=== PATIENT | female | born 1980 | race Caucasian/White ===

== ENCOUNTER → 2017-02-20 | Outpatient (CLI) | payer SELFPAY ==
[2017-02-20 19:13] LABS: BASOPHILS # (AUTO) 0.1 10^3/uL (0.0-0.1); EOSINOPHILS # (AUTO) 0.3 10^3/uL (0.0-0.7); EOSINOPHILS % (AUTO) 2.2 %; HCT - HEMATOCRIT 38.9 % (37.0-47.0); HGB - HEMOGLOBIN 12.6 g/dL (12.0-16.0); LYMPHOCYTES # (AUTO) 2.9 10^3/uL (1.5-3.5); LYMPHOCYTES % (AUTO) 24.3 %; MEAN CORPUSCULAR HEMOGLOBIN 26.2 pg (27.0-31.0); MEAN CORPUSCULAR HGB CONC 32.3 g/dL (32.0-36.0); MEAN CORPUSCULAR VOLUME 80.9 fL (81.0-99.0); MEAN PLATELET VOLUME 9.2 fL (7.9-10.8); MONOCYTES # (AUTO) 0.9 10^3/uL (0.0-1.0); MONOCYTES % (AUTO) 7.5 %; NEUTROPHILS # (AUTO) 7.8 10^3/uL (1.5-6.6); NUCLEATED RED BLOOD CELLS AUTO 0.1 /100WBC; RED BLOOD COUNT 4.81 10^6/uL (4.20-5.40); RED CELL DISTRIBUTION WIDTH 13.8 % (12.0-15.0); UNCORRECTED WHITE BLOOD COUNT 11.9 x10^3/uL; WHITE BLOOD COUNT 11.9 x10^3/uL (4.8-10.8)
[2017-02-20 19:18] LABS: ALBUMIN/GLOBULIN RATIO 1.2 (1.0-2.2); BILIRUBIN,TOTAL 0.2 mg/dL (0.2-1.0); BUN - BLOOD UREA NITROGEN 13 mg/dL (6-20); CALCIUM 8.7 mg/dL (8.5-10.3); CARBON DIOXIDE - CO2 23 mmol/L (21-32); CHLORIDE 105 mmol/L (101-111); CREATININE 0.9 mg/dL (0.4-1.0); GFR - MDRD 70 (>89); GLUCOSE 111 mg/dL (70-100); SODIUM 135 mmol/L (135-145); TOTAL PROTEIN 7.9 g/dL (6.7-8.2)
[2017-02-20 19:25] LABS: THYROID STIMULATING HORMONE 17.14 uIU/mL (0.34-5.60)
== END ==
LOC: LAB.WCP 13:54
PROVIDERS: ATTEND Physician Assistant Medical
DX: R79.9 Abnormal finding of blood chemistry, unspecified (principal); E03.9 Hypothyroidism, unspecified; Z51.81 Encounter for therapeutic drug level monitoring; Z79.899 Other long term (current) drug therapy
CPT/HCPCS: 36415; 80053; 84439; 84443; 85025

== ENCOUNTER 2017-05-13 12:45 | Outpatient (CLI) | payer SELFPAY ==
[2017-05-13 17:35] LABS: BASOPHILS # (AUTO) 0.1 10^3/uL (0.0-0.1); BASOPHILS % (AUTO) 0.7 %; EOSINOPHILS # (AUTO) 0.2 10^3/uL (0.0-0.7); EOSINOPHILS % (AUTO) 2.8 %; HGB - HEMOGLOBIN 12.6 g/dL (12.0-16.0); LYMPHOCYTES % (AUTO) 34.7 %; MEAN CORPUSCULAR HEMOGLOBIN 25.5 pg (27.0-31.0); MEAN CORPUSCULAR HGB CONC 32.3 g/dL (32.0-36.0); MEAN CORPUSCULAR VOLUME 78.9 fL (81.0-99.0); MEAN PLATELET VOLUME 8.8 fL (7.9-10.8); MONOCYTES # (AUTO) 0.6 10^3/uL (0.0-1.0); MONOCYTES % (AUTO) 6.6 %; NEUTROPHILS # (AUTO) 4.8 10^3/uL (1.5-6.6); NEUTROPHILS % (AUTO) 55.2 %; PLT - PLATELET COUNT 355 10^3/uL (130-450); RED BLOOD COUNT 4.93 10^6/uL (4.20-5.40); RED CELL DISTRIBUTION WIDTH 13.3 % (12.0-15.0); WHITE BLOOD COUNT 8.8 x10^3/uL (4.8-10.8)
[2017-05-13 17:57] LABS: ALBUMIN 4.3 g/dL (3.2-5.5); ALBUMIN/GLOBULIN RATIO 1.1 (1.0-2.2); ALKALINE PHOSPHATASE 81 IU/L (42-121); ALT ALANINE AMINOTRANSFERASE 42 IU/L (10-60); AST ASPARTATE AMINOTRANSFERASE 32 IU/L (10-42); BILIRUBIN,TOTAL 0.4 mg/dL (0.2-1.0); BUN - BLOOD UREA NITROGEN 11 mg/dL (6-20); CALCIUM 9.2 mg/dL (8.5-10.3); CARBON DIOXIDE - CO2 26 mmol/L (21-32); CHLORIDE 99 mmol/L (101-111); CREATININE 0.8 mg/dL (0.4-1.0); GFR - MDRD 80 (>89); GLUCOSE 94 mg/dL (70-100); SODIUM 136 mmol/L (135-145); TOTAL PROTEIN 8.1 g/dL (6.7-8.2)
== END 2017-05-13 12:46 | disposition home or self-care (01) ==
LOC: LAB.F 12:45
PROVIDERS: ATTEND Physician Assistant Medical
DX: R79.9 Abnormal finding of blood chemistry, unspecified (principal); E03.9 Hypothyroidism, unspecified
CPT/HCPCS: 36415; 80053; 84443; 85025

== ENCOUNTER 2017-10-27 08:59 | Outpatient (CLI) | payer MEDICAID ==
[2017-10-27 12:52] LABS: BASOPHILS # (AUTO) 0.1 10^3/uL (0.0-0.1); EOSINOPHILS # (AUTO) 0.3 10^3/uL (0.0-0.7); EOSINOPHILS % (AUTO) 3.6 %; HGB - HEMOGLOBIN 13.3 g/dL (12.0-16.0); LYMPHOCYTES # (AUTO) 2.4 10^3/uL (1.5-3.5); LYMPHOCYTES % (AUTO) 27.7 %; MEAN CORPUSCULAR HEMOGLOBIN 25.7 pg (27.0-31.0); MEAN CORPUSCULAR HGB CONC 32.1 g/dL (32.0-36.0); MEAN PLATELET VOLUME 8.8 fL (7.9-10.8); MONOCYTES # (AUTO) 0.6 10^3/uL (0.0-1.0); MONOCYTES % (AUTO) 6.8 %; NEUTROPHILS # (AUTO) 5.2 10^3/uL (1.5-6.6); NEUTROPHILS % (AUTO) 60.9 %; PLT - PLATELET COUNT 342 10^3/uL (130-450); RED BLOOD COUNT 5.19 10^6/uL (4.20-5.40); RED CELL DISTRIBUTION WIDTH 13.9 % (12.0-15.0); WHITE BLOOD COUNT 8.6 x10^3/uL (4.8-10.8)
[2017-10-27 13:21] LABS: ALBUMIN 3.6 g/dL (3.2-5.5); ALBUMIN/GLOBULIN RATIO 0.9 (1.0-2.2); ALKALINE PHOSPHATASE 71 IU/L (42-121); ALT ALANINE AMINOTRANSFERASE 23 IU/L (10-60); AST ASPARTATE AMINOTRANSFERASE 27 IU/L (10-42); BILIRUBIN,TOTAL 0.5 mg/dL (0.2-1.0); BUN - BLOOD UREA NITROGEN 7 mg/dL (6-20); CALCIUM 8.9 mg/dL (8.5-10.3); CARBON DIOXIDE - CO2 26 mmol/L (21-32); CHLORIDE 102 mmol/L (101-111); CHOL/HDL RATIO 5.4 (<4.4); CHOLESTEROL 223 mg/dL; CREATININE 0.8 mg/dL (0.4-1.0); GFR - MDRD 80 (>89); GLUCOSE 100 mg/dL (70-100); HDL CHOLESTEROL 41 mg/dL; LDL CHOLESTEROL,CALCULATED 160 mg/dL; LDL/HDL RATIO 3.9 (<4.4); SODIUM 134 mmol/L (135-145); TOTAL PROTEIN 7.5 g/dL (6.7-8.2); VLDL CHOLESTEROL 22 mg/dL
== END 2017-10-27 09:00 | disposition home or self-care (01) ==
LOC: LAB.WCP 08:59
PROVIDERS: ATTEND Physician Assistant Medical
DX: Z00.00 Encounter for general adult medical examination without abnormal findings (principal)
CPT/HCPCS: 36415; 80053; 80061; 83721; 84443; 85025

== ENCOUNTER 2019-01-29 22:03 | Emergency (ER) | payer OTHER, MEDICAID ==
[2019-01-29] MEDS ORDERED: ONDANSETRON ODT 4 MG TABLET TL STA ×2 (22:29→23:18)
--- NOTE | 2019-01-29 22:29 | ED Physician Documentation ---
History of Present Illness - Stated complaint Stated Complaint: HAND PX/GLF - Chief complaint Chief Complaint: Trauma Ext - Additonal information Additional information: This is a 46-year-old female who presents with right hand pain. She was at work and she almost tripped so she was reaching out to catch her balance and "pin wheeling" her arms when she hit her right hand on a metal baking shelf. She had immediate pain in the area and swelling. She went back to work for 20 minutes but afterwards the pain became so great that she went home. When her saw the amount of swelling from the area that she had, he told her to come in to get checked out. She states that the pain is so bad right now that she feels slightly nauseated. She denies injuries elsewhere. She did have a little bit of bleeding from the dorsal aspect of the hand where she has an abrasion suffered in the injury. Review of Systems Skin: reports: Abrasion (s) Musculoskeletal: reports: Extremity pain PD PAST MEDICAL HISTORY - Past Medical History Cardiovascular: None Respiratory: Other Endocrine/Autoimmune: HyPOthyroidism GI: Hiatal hernia FACE BURLER: None : Kidney stones HEENT: None Psych: Depression, Anxiety, Post traumatic stress disorder, Other Musculoskeletal: Chronic back pain Derm: None - Past Surgical History Past Surgical History: Yes General: Cholecystectomy, EGD Ortho: Other /FACE BURLER: Tubal ligation - Present Medications Home Medications: Ambulatory Orders Medication Instructions Recorded Confirmed Citalopram [CeleXA] 40 mg PO DAILY 03/24/14 08/26/15 Levothyroxine [Synthroid] 150 mcg PO DAILY 03/24/14 08/26/15 Diphenoxylate/Atropine [Lomotil] 1 each PO QID PRN #15 tablet 08/27/15 Famotidine 20 mg PO BID #15 tablet 08/27/15 Hydrocodone/Acetaminophen [[place] 1 each PO Q6H PRN #15 tablet 08/27/15 5-325 Tablet] Ondansetron HCl [Zofran] 4 mg PO Q6H PRN #20 tablet 08/27/15 - Allergies Allergies/Adverse Reactions: Allergies Allergy/AdvReac Type Severity Reaction Status Date / Time diclofenac AdvReac Severe Nausea Verified 08/26/15 22:28 erythromycin base AdvReac Severe Nausea Verified 08/26/15 22:28 - Social History Does the pt smoke?: Yes Smoking Status: Current every day smoker Does the pt drink ETOH?: No Does the pt have substance abuse?: No - Immunizations Immunizations are current?: Yes - POLST Patient has POLST: No PD ED PE NORMAL - Vitals Vital signs reviewed: Yes - General General: Alert and oriented X 3, No acute distress - Cardiac Cardiac: Strong equal pulses - Respiratory Respiratory: No respiratory distress - Extremities Extremities: Other (Swelling in the dorsal and ulnar aspect of her right hand, there is a small less than 0.5 cm abrasion with no active bleeding. Patient is tender in the area of the edema as well as the distal 4th finger, The remainder of her fingers, as well as the wrist and forearm are nontender to palpation. Sensation is intact to light touch over this to be in the median radial and ulnar nerves. Capillary refill is brisk.) - Neuro Neuro: Alert and oriented X 3 - Psych Psych: Normal mood, Normal affect Results - Vitals Vitals: Vital Signs - 24 hr 01/29/19 01/29/19 22:12 23:25 Temperature 36.6 C Heart Rate 78 73 Respiratory 22 22 Rate Blood Pressure 153/86 H 152/131 H O2 Saturation 100 100 Oxygen O2 Source Room air - Rads (name of study) XR Radiology: Other (Fracture of the distal 4th phalanx) PD MEDICAL DECISION MAKING - ED course Complexity details: considered differential (Fracture, contusion, sprain) ED course: Patient is in significant pain and is nauseated from the pain on arrival, she is given Zofran as well as oxycodone. She required 1 more dose of antinausea medications subsequently with good results. Patient's hand is neurovascularly intact, she has a fracture of her distal fourth finger, no other fractures seen. This is a closed fracture, The mild abrasion she has is far from the fracture site, and is hemostatic, no specific intervention is needed for it. She is provided with a splint to immobilize the DIP, and I reviewed supportive care such as splinting and kevin taping, and afcu-zwy-kqzseee medications for pain control. I reviewed return precautions and recommend to follow-up with her primary care provider. Patient agreed and was discharged home. Departure - Departure Disposition: 01 Home, Self Care Clinical Impression: Finger fracture, right Condition: Good Instructions: ED Fx Finger Closed Follow-Up: Margareth Aguiar PA-C [Primary Care Provider] - (For follow up on finger fracture and hand pain) Comments: You were seen today for pain in your right hand, you have a fracture of the tip of your fourth finger. We do not see signs or fracture lower down in your hand, but if you are having continued and not improving pain in your hand, please follow-up with your primary care provider and have a reevaluation/repeat x-ray in 1 week. Sometimes small fractures are difficult to see on x-rays immediately after the injury. You may take Tylenol and ibuprofen for pain, ice the hand, keep it elevated. If you have worsening symptoms please return to the emergency permit Forms: Activity restrictions Discharge Date/Time: 01/29/19 23:30
[2019-01-29] MEDS ORDERED: oxyCODONE 5 MG TABLET PO STA (22:30)
--- NOTE | 2019-01-29 22:58 | XRAY Report ---
Reason: Fall, hand trauma Procedure Date: 01/29/2019 Accession Number: [id number] / [id number] Procedure: XR - Hand 3 View RT CPT Code: FULL RESULT: EXAM: RIGHT HAND RADIOGRAPHY EXAM DATE: 01/29/2019 10:46 PM. CLINICAL HISTORY: Fall, hand trauma. COMPARISON: None. TECHNIQUE: 3 views. FINDINGS: Bones: There is fracture through the tip of the fourth distal phalanx. Joints: No evidence of dislocation. Soft Tissues: No unexpected soft tissue findings. IMPRESSION: There is fracture through the tip of the fourth distal phalanx. No evidence of dislocation. RADIA
[2019-01-29 23:26] VITALS: BP 152/131
== END 2019-01-29 23:30 | disposition home or self-care (01) ==
LOC: ED 22:03
DX: S62.634A Displaced fracture of distal phalanx of right ring finger, initial encounter for closed fracture (principal); S60.511A Abrasion of right hand, initial encounter; W22.09XA Striking against other stationary object, initial encounter; Y99.0 Civilian activity done for income or pay; R11.0 Nausea; F17.200 Nicotine dependence, unspecified, uncomplicated
CPT/HCPCS: 1040M; 73130; 99282; 99283; A9270; Q0162

== ENCOUNTER 2019-04-27 08:00 | Outpatient (CLI) | payer MEDICAID ==
[2019-04-27 18:41] LABS: BASOPHILS # (AUTO) 0.1 10^3/uL (0.0-0.1); BASOPHILS % (AUTO) 1.1 %; EOSINOPHILS # (AUTO) 0.3 10^3/uL (0.0-0.7); EOSINOPHILS % (AUTO) 3.1 %; HGB - HEMOGLOBIN 14.1 g/dL (12.0-16.0); LYMPHOCYTES # (AUTO) 2.6 10^3/uL (1.5-3.5); LYMPHOCYTES % (AUTO) 31.5 %; MEAN CORPUSCULAR HEMOGLOBIN 26.2 pg (27.0-31.0); MEAN CORPUSCULAR HGB CONC 30.9 g/dL (32.0-36.0); MEAN CORPUSCULAR VOLUME 84.8 fL (81.0-99.0); MEAN PLATELET VOLUME 10.3 fL (7.9-10.8); MONOCYTES # (AUTO) 0.6 10^3/uL (0.0-1.0); MONOCYTES % (AUTO) 7.6 %; NEUTROPHILS # (AUTO) 4.7 10^3/uL (1.5-6.6); NEUTROPHILS % (AUTO) 56.5 %; PLT - PLATELET COUNT 362 10^3/uL (130-450); RED BLOOD COUNT 5.39 10^6/uL (4.20-5.40); RED CELL DISTRIBUTION WIDTH 13.5 % (12.0-15.0); WHITE BLOOD COUNT 8.3 x10^3/uL (4.8-10.8)
[2019-04-27 19:12] LABS: ALBUMIN 4.5 g/dL (3.2-5.5); ALBUMIN/GLOBULIN RATIO 1.1 (1.0-2.2); ALKALINE PHOSPHATASE 66 IU/L (42-121); ALT ALANINE AMINOTRANSFERASE 17 IU/L (10-60); AST ASPARTATE AMINOTRANSFERASE 20 IU/L (10-42); BUN - BLOOD UREA NITROGEN 15 mg/dL (6-20); CALCIUM 9.1 mg/dL (8.5-10.3); CARBON DIOXIDE - CO2 26 mmol/L (21-32); CHLORIDE 101 mmol/L (101-111); GFR - MDRD 61 (>89); GLUCOSE 84 mg/dL (70-100); SODIUM 135 mmol/L (135-145); TOTAL PROTEIN 8.5 g/dL (6.7-8.2); VLDL CHOLESTEROL 24 mg/dL
[2019-04-27 19:13] LABS: CHOL/HDL RATIO 7.1 (<4.4); CHOLESTEROL 250 mg/dL; HDL CHOLESTEROL 35 mg/dL; LDL CHOLESTEROL,CALCULATED 191 mg/dL; LDL/HDL RATIO 5.5 (<4.4)
[2019-04-27 19:59] LABS: FREE T4 (FREE THYROXINE) 0.93 ng/dL (0.58-1.64)
== END 2019-04-27 23:59 | disposition home or self-care (01) ==
LOC: LAB.WCP 08:00
PROVIDERS: ATTEND Physician Assistant Medical
DX: Z00.00 Encounter for general adult medical examination without abnormal findings (principal); Z51.81 Encounter for therapeutic drug level monitoring; Z79.899 Other long term (current) drug therapy; R79.9 Abnormal finding of blood chemistry, unspecified; Z13.220 Encounter for screening for lipoid disorders; F32.9 Major depressive disorder, single episode, unspecified; E03.9 Hypothyroidism, unspecified
CPT/HCPCS: 36415; 80053; 80061; 83721; 84439; 84443; 85025

== ENCOUNTER 2019-08-13 19:27 | Emergency (ER) | payer MEDICAID ==
[2019-08-13] MEDS ORDERED: cefTRIAXone 1 GM VIAL IM STA (19:59)
[2019-08-13] MEDS ORDERED: TETANUS/DIPHTHERIA/PERTUSSIS 0.5 ML SYRINGE IM ONE (19:59)
[2019-08-13] MEDS ORDERED: AMOX/CLAV 875 MG/125 MG TABLET PO STA (19:59)
[2019-08-13] MEDS ORDERED: LIDOCAINE 1% 2 ML VIAL MC ONE (19:59)
[2019-08-13] MEDS ORDERED: oxyCODONE 5 MG TABLET PO STA (19:59)
--- NOTE | 2019-08-13 20:18 | ED Physician Documentation ---
History of Present Illness - Stated complaint Stated Complaint: CAT BITE - LT HAND - Chief complaint Chief Complaint: Trauma Ext - History obtained from History obtained from: Patient - History of Present Illness Timing: Yesterday Pain level max: 8 Pain level now: 6 - Additonal information Additional information: 39-year-old female states she was bitten on her left index finger by cat last night. Started noticing redness and swelling today, is worsened throughout the day. Pain with movement. Unknown last tetanus shot. Better with rest. No fevers. 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 : Kidney stones HEENT: None Psych: Depression, Anxiety, Post traumatic stress disorder, Other Musculoskeletal: Chronic back pain Derm: None - Past Surgical History Past Surgical History: Yes General: Cholecystectomy, EGD Ortho: Other /PERSONAL LINES SALES REP: Tubal ligation - Present Medications Home Medications: Ambulatory Orders Medication Instructions Recorded Confirmed Citalopram [CeleXA] 40 mg PO DAILY 03/24/14 08/13/19 Levothyroxine [Synthroid] 150 mcg PO DAILY 03/24/14 08/13/19 Amox/Clav 875/125 [Augmentin] 1 each PO Q12H #20 tablet 08/13/19 Oxycodone HCl 5 - 10 mg PO Q6H PRN #10 tablet 08/13/19 - Allergies Allergies/Adverse Reactions: Allergies Allergy/AdvReac Type Severity Reaction Status Date / Time diclofenac AdvReac Severe Nausea Verified 08/13/19 19:37 erythromycin base AdvReac Severe Nausea Verified 08/13/19 19:37 - Social History Does the pt smoke?: Yes Smoking Status: Current every day smoker Does the pt drink ETOH?: No Does the pt have substance abuse?: Yes Substance Use and Type: Marijuana - Immunizations Immunizations are current?: Yes - POLST Patient has POLST: No PD ED PE NORMAL - Vitals Vital signs reviewed: Yes - General General: Alert and oriented X 3, No acute distress - HEENT HEENT: Moist mucous membranes - Neck Neck: Supple, no meningeal sign - Cardiac Cardiac: RRR - Respiratory Respiratory: No respiratory distress, Clear bilaterally - Derm Derm: Warm and dry - Extremities Extremities: Other (Erythema and swelling to the left index finger, proximal aspect and MCP joint. Pain with range of motion. No tenderness over the palmar aspect of the hand or finger. No crepitus. No lymphangitis. Neurovascular intact) - Neuro Neuro: Alert and oriented X 3 Results - Vitals Vitals: Vital Signs - 24 hr 08/13/19 08/13/19 19:33 20:28 Temperature 36.4 C L 36.7 C Heart Rate 76 70 Respiratory 16 12 Rate Blood Pressure 102/77 126/91 H O2 Saturation 98 98 Oxygen O2 Source Room air PD MEDICAL DECISION MAKING - ED course Complexity details: considered differential, d/w patient ED course: Patient with a cat bite to the left index finger. Given Rocephin and will start on Augmentin. Given a tetanus shot. Placed in a loose volar splint for comfort. Patient tolerated well. Neurovascular intact. Patient counseled regarding signs and symptoms for which I believe and urgent re-evaluation would be necessary. Patient with good understanding of and agreement to plan and is comfortable going home at this time This document was made in part using voice recognition software. While efforts are made to proofread this document, sound alike and grammatical errors may occur. Departure - Departure Disposition: 01 Home, Self Care Clinical Impression: Cat bite Qualifiers: Encounter type: initial encounter Qualified Code(s): W55.01XA - Bitten by cat, initial encounter Cellulitis Qualifiers: Site of cellulitis: extremity Site of cellulitis of extremity: finger Laterality: left Qualified Code(s): L03.012 - Cellulitis of left finger Condition: Good Instructions: ED Bite Animal General, ED Infec Skin Cellulitis Follow-Up: Margareth Aguiar PA-C [Primary Care Provider] - Within 3 Days Prescriptions: Amox/Clav 875/125 [Augmentin] 1 each PO Q12H #20 tablet Oxycodone HCl 5 - 10 mg PO Q6H PRN #10 tablet PRN Reason: pain Comments: Take all antibiotics until gone. Return if you worsen. Follow-up with your doctor in 3 days for wound check. Return for worsening symptoms including increasing redness, swelling, pain, fever or drainage. Do not drink alcohol or drive while on narcotic pain medicine. Note that many narcotic pain relievers also contain tylenol/acetaminophen. Please ensure that your total dose of acetaminophen from all sources does not exceed 3 grams (3000mg) per day. You may constipated on this medication, take a stool softener such as "Colace" twice a day while you are on it. Also recommend a fadt-ozo-zzyxace laxative such as senna or MiraLAX any day that you do not have a bowel movement. If you received narcotic pain medication in the emergency department, do not drive or operate machinery for the next 24 hours. Remove the splint after 2 to 3 days. It is purely there to help with your pain. Make sure that you are checking under the bandages twice a day. Discharge Date/Time: 08/13/19 20:29
[2019-08-13 20:28] VITALS: BP 126/91
== END 2019-08-13 20:29 | disposition home or self-care (01) ==
LOC: ED 19:27
DX: L03.012 Cellulitis of left finger (principal); F17.200 Nicotine dependence, unspecified, uncomplicated
CPT/HCPCS: 90471; 90715; 96372; 99283; 99284; A9270

== ENCOUNTER 2020-04-12 13:58 | Outpatient (CLI) | payer MEDICAID ==
[2020-04-12 17:59] LABS: BASOPHILS # (AUTO) 0.1 10^3/uL (0.0-0.1); BASOPHILS % (AUTO) 1.7 %; EOSINOPHILS # (AUTO) 0.4 10^3/uL (0.0-0.7); EOSINOPHILS % (AUTO) 4.6 %; HGB - HEMOGLOBIN 13.6 g/dL (12.0-16.0); LYMPHOCYTES # (AUTO) 2.9 10^3/uL (1.5-3.5); LYMPHOCYTES % (AUTO) 36.5 %; MEAN CORPUSCULAR HGB CONC 31.8 g/dL (32.0-36.0); MEAN CORPUSCULAR VOLUME 84.9 fL (81.0-99.0); MEAN PLATELET VOLUME 10.4 fL (7.9-10.8); MONOCYTES # (AUTO) 0.6 10^3/uL (0.0-1.0); MONOCYTES % (AUTO) 7.8 %; NEUTROPHILS # (AUTO) 3.9 10^3/uL (1.5-6.6); PLT - PLATELET COUNT 389 10^3/uL (130-450); RED BLOOD COUNT 5.04 10^6/uL (4.20-5.40); RED CELL DISTRIBUTION WIDTH 13.2 % (12.0-15.0); WHITE BLOOD COUNT 7.9 x10^3/uL (4.8-10.8)
[2020-04-12 18:22] LABS: % IRON SATURATION 17 % (20-50); ALBUMIN 4.5 g/dL (3.2-5.5); ALBUMIN/GLOBULIN RATIO 1.2 (1.0-2.2); ALKALINE PHOSPHATASE 72 IU/L (42-121); ALT ALANINE AMINOTRANSFERASE 13 IU/L (10-60); AST ASPARTATE AMINOTRANSFERASE 15 IU/L (10-42); BILIRUBIN,TOTAL 0.3 mg/dL (0.2-1.0); BUN - BLOOD UREA NITROGEN 15 mg/dL (6-20); CALCIUM 9.4 mg/dL (8.5-10.3); CARBON DIOXIDE - CO2 25 mmol/L (21-32); CHLORIDE 103 mmol/L (101-111); CHOL/HDL RATIO 6.2 (<4.4); CHOLESTEROL 246 mg/dL; CREATININE 0.8 mg/dL (0.4-1.0); GLUCOSE 84 mg/dL (70-100); HDL CHOLESTEROL 40 mg/dL; IRON 62 ug/dL (28-170); LDL CHOLESTEROL,CALCULATED 176 mg/dL; LDL/HDL RATIO 4.4 (<4.4); SODIUM 137 mmol/L (135-145); TOTAL IRON BINDING CAPACITY 365 ug/dL (250-450); TOTAL PROTEIN 8.2 g/dL (6.7-8.2); TRANSFERRIN 261 mg/dL (192-382); VLDL CHOLESTEROL 30 mg/dL
[2020-04-12 18:32] LABS: FERRITIN 31.9 ng/mL (11.0-306.8)
[2020-04-12 18:33] LABS: PROLACTIN 16.81 ng/mL
[2020-04-12 18:57] LABS: FREE T4 (FREE THYROXINE) 0.87 ng/dL (0.58-1.64)
== END 2020-04-12 23:59 | disposition home or self-care (01) ==
LOC: LAB.WCP 13:58
PROVIDERS: ATTEND Physician Assistant Medical
DX: E78.5 Hyperlipidemia, unspecified (principal); N92.0 Excessive and frequent menstruation with regular cycle; E03.9 Hypothyroidism, unspecified
CPT/HCPCS: 36415; 80053; 80061; 82728; 83540; 83721; 84146; 84439; 84443; 84466; 85025

== ENCOUNTER 2020-05-01 14:54 | Outpatient (CLI) | payer MEDICAID ==
--- NOTE | 2020-05-02 09:21 | Ultrasound Report ---
PROCEDURE: Pelvic w/Transvaginal INDICATIONS: MENORRHAGIA TECHNIQUE: Real-time scanning was performed of the pelvic organs, with image documentation. Additional endovagi nal scanning was necessary due to incomplete visualization of the adnexal and endometrial structures by transabdominal scanning. COMPARISON: CT abdomen pelvis 07/24/2015 FINDINGS: Transabdominal scanning: Anteverted and anteflexed uterus is of normal size. No pathologic free abdo reema or pelvic fluid. Endovaginal scanning: Uterus: Uterus is normal in size at 9.2 x 4.7 x 6.0 cm. The myometrium is quite heterogeneous. There is a prominent focus in the posterior lower uterine segment of hyperechogenicity extending from the endometrium to the junctional zone. There are several intramural heterogeneous hypoechoic masses rang ing in size from 9 mm to 1.2 cm. The endometrium measures 13 mm in combined thickness. Ovaries: The right ovary measures 1.8 x 1.1 x 1.7 cm for a volume of 1.7 cc. The left ovary measures 2.8 x 2.0 x 2.7 cm for a volume of 7.7 cc. There is a dominant follicle on the right ovary measuring 1.9 cm. No adnexal masses or free fluid. IMPRESSION: 1. Heterogeneous, fibroid uterus. Uterine heterogeneity also raises the possibility of adenomyosis. C onsider MRI of the pelvis for better evaluation if this is inconsistent with history. 2. Normal ovaries. Reviewed by: Shirley Fleming MD on 05/02/2020 9:20 AM PST Approved by: Shirley Fleming MD on 05/02/2020 9:20 AM PST Station ID: [id number]
== END 2020-05-01 14:55 | disposition home or self-care (01) ==
LOC: DI 14:54
PROVIDERS: ATTEND Physician Assistant Medical
DX: D25.1 Intramural leiomyoma of uterus (principal)

== ENCOUNTER 2020-05-16 08:00 | Outpatient (CLI) | payer MEDICAID ==
[2020-05-16 22:30] LABS: CANDIDA GROUP DNA NEGATIVE (NEGATIVE); CANDIDA KRUSEI DNA NEGATIVE (NEGATIVE); TRICHOMONAS VAGINALIS DNA NEGATIVE (NEGATIVE)
[2020-05-16 23:56] LABS: TRICHOMONAS VAGINALIS DNA NEGATIVE (NEGATIVE)
== END 2020-05-16 23:59 | disposition home or self-care (01) ==
LOC: LAB 08:00
PROVIDERS: ATTEND Obstetrics & Gynecology
DX: Z11.3 Encounter for screening for infections with a predominantly sexual mode of transmission (principal); N76.0 Acute vaginitis
CPT/HCPCS: 87491; 87591; 87661; 87801

== ENCOUNTER 2020-06-19 15:29 | Outpatient (CLI) | payer MEDICAID ==
[2020-06-19 16:06] LABS: BASOPHILS # (AUTO) 0.1 10^3/uL (0.0-0.1); BASOPHILS % (AUTO) 1.2 %; EOSINOPHILS # (AUTO) 0.5 10^3/uL (0.0-0.7); EOSINOPHILS % (AUTO) 4.9 %; HCT - HEMATOCRIT 41.5 % (37.0-47.0); LYMPHOCYTES # (AUTO) 2.7 10^3/uL (1.5-3.5); LYMPHOCYTES % (AUTO) 29.4 %; MEAN CORPUSCULAR HEMOGLOBIN 26.6 pg (27.0-31.0); MEAN CORPUSCULAR HGB CONC 31.3 g/dL (32.0-36.0); MEAN CORPUSCULAR VOLUME 84.9 fL (81.0-99.0); MEAN PLATELET VOLUME 10.4 fL (7.9-10.8); MONOCYTES # (AUTO) 0.9 10^3/uL (0.0-1.0); MONOCYTES % (AUTO) 9.7 %; NEUTROPHILS % (AUTO) 54.4 %; PLT - PLATELET COUNT 324 10^3/uL (130-450); RED BLOOD COUNT 4.89 10^6/uL (4.20-5.40); RED CELL DISTRIBUTION WIDTH 12.9 % (12.0-15.0); WHITE BLOOD COUNT 9.2 x10^3/uL (4.8-10.8)
[2020-06-19 16:24] LABS: ALBUMIN 4.2 g/dL (3.2-5.5); ALBUMIN/GLOBULIN RATIO 1.2 (1.0-2.2); BILIRUBIN,TOTAL 0.4 mg/dL (0.2-1.0); CALCIUM 9.7 mg/dL (8.5-10.3); CREATININE 0.8 mg/dL (0.4-1.0); POTASSIUM 4.3 mmol/L (3.5-5.0); TOTAL PROTEIN 7.7 g/dL (6.7-8.2)
[2020-06-19 16:26] LABS: HCG UR QUAL NEGATIVE
== END 2020-06-19 15:30 | disposition home or self-care (01) ==
LOC: LAB 15:29
PROVIDERS: ATTEND Obstetrics & Gynecology
DX: Z01.812 Encounter for preprocedural laboratory examination (principal); N92.0 Excessive and frequent menstruation with regular cycle; N94.6 Dysmenorrhea, unspecified; Z20.822 Contact with and (suspected) exposure to COVID-19
CPT/HCPCS: 36415; 80053; 81025; 85025; 86850; 86900; 86901

== ENCOUNTER 2020-06-21 07:48 | Observation (INO) | payer MEDICAID ==
[~2020-06-21 07:48] MED LIST: ACETAMINOPHEN 1,000 MG/100 ML 100 ML IV ONE; CELECOXIB 100 MG CAPSULE PO ONE; GABAPENTIN 400 MG CAPSULE ONE; PHENAZOPYRIDINE 100 MG TABLET PO ONE; ceFAZolin 2 GM/50 ML 2 GM/50 ML BAG IV ONE
[2020-06-21] MEDS ORDERED: LACTATED RINGERS 1,000 ML IV ONE ×2 (07:54→13:02)
[2020-06-21 08:07] LABS: HCG UR QUAL NEGATIVE
[2020-06-21] MEDS ORDERED: BUPIVACAINE 0.25% PF 30 ML VIAL ONE (08:30)
[2020-06-21] MEDS ORDERED: LIDOCAINE 2%-EPI 1:100000 20 ML MDV ONE (08:30)
[2020-06-21] MEDS ORDERED: LIDOCAINE-MPF 2% 5 ML VIAL ONE (09:03)
[2020-06-21] MEDS ORDERED: DEXAMETHASONE 4 MG/ML VIAL ONE (09:03)
[2020-06-21] MEDS ORDERED: PROPOFOL 200 MG/20 ML VIAL IVP ONE (09:03)
[2020-06-21] MEDS ORDERED: ROCURONIUM 50 MG/5 ML VIAL ONE ×2 (09:03→11:07)
[2020-06-21] MEDS ORDERED: MIDAZOLAM 2 MG/2 ML VIAL ONE (09:03)
[2020-06-21] MEDS ORDERED: fentaNYL 100 MCG/2 ML VIAL ONE (09:03)
[2020-06-21] MEDS ORDERED: ONDANSETRON 4 MG/2 ML VIAL ONE ×2 (09:03→14:11)
--- NOTE | 2020-06-21 09:21 | ANESTHESIA ---
Pre-Anesthesia VS, & Labs - Diagnosis menorrhagia, dysmenorrhea - Procedure total laparoscopic hysterectomy, cystoscopy Vital Signs: Temp Pulse Resp BP Pulse Ox 36.3 C L 81 16 100/44 L 98 06/21/20 07:59 06/21/20 07:59 06/21/20 07:59 06/21/20 07:59 06/21/20 07:59 Height: 6 ft 1 in Weight (kg): 91 kg Body Mass Index: 26.4 BMI Classification: Overweight - NPO >8 hours - Is Patient ?: No - Lab Results Current Lab Results: Laboratory Tests 06/21/20 08:14: POC Whole Bld Glucose 109 H Home Medications and Allergies Home Medications: Ambulatory Orders Acetaminophen [Tylenol] 650 mg PO Q6H PRN 06/12/20 Ibuprofen [Motrin] 600 mg PO Q6H PRN 06/12/20 Citalopram [CeleXA] 40 mg PO DAILY 03/24/14 Levothyroxine [Synthroid] 225 mcg PO DAILY 03/24/14 Acetaminophen [Tylenol] 650 mg PO Q6H PRN 06/12/20 Ibuprofen [Motrin] 600 mg PO Q6H PRN 06/12/20 Allergies/Adverse Reactions: Allergies Allergy/AdvReac Type Severity Reaction Status Date / Time bupropion [From Wellbutrin] Allergy facial Verified 06/21/20 08:38 numbess, neurological problems diclofenac AdvReac Severe Nausea Verified 06/21/20 08:38 erythromycin base AdvReac Severe Nausea Verified 06/21/20 08:38 Anes History & Medical History - Anesthetic History Anesthesia Complications: reports: Post-Operative Nausea/Vomiting - Medical History Cardiovascular: reports: None Pulmonary: reports: None Gastrointestinal: reports: None Urinary: reports: Kidney stones Neuro: reports: None Musculoskeletal: reports: Chronic back pain, Other Endocrine/Autoimmune: reports: HyPOthyroidism, Other Blood Disorders: reports: None Skin: reports: None Smoking Status: Current every day smoker (1/2 pack per day for 20 years) Psychosocial: reports: Depression, Anxiety, Cannabis (smokes daily), Other (PTSD) History of Cancer?: No - Surgical History General: reports: Cholecystectomy, EGD Gynecologic: reports: Tubal ligation Orthopedic: reports: Arthroscopic surgery, Other Exam General: Alert, Oriented x3, Cooperative, No acute distress Dental: WNL Mouth Openin Fingerbreadth Neck Mobility: Normal Mallampati classification: I Thyromental Distance: greater than 6 cm Mental/Cognitive Status: Alert/Oriented X3, Normal for patient Plan Anesthesia Type: General Consent for Procedure(s) Verified and Reviewed: Yes Code Status: Attempt Resuscitation ASA classification: 2-Mild systemic disease Is this case an emergency?: No
[2020-06-21] MEDS ORDERED: SCOPOLAMINE PATCH TOP ONE (09:35)
[2020-06-21] MEDS ORDERED: SCOPOLAMINE PATCH TOP SCH (10:00)
[2020-06-21] MEDS ORDERED: BUPIVACAINE 0.5% PF 30 ML VIAL ONE (10:06)
[2020-06-21] MEDS ORDERED: NALOXONE 0.4 MG/ML VIAL IVP PRN (10:10)
[2020-06-21] MEDS ORDERED: fentaNYL 100 MCG/2 ML VIAL IVP PRN (10:10)
[2020-06-21] MEDS ORDERED: ONDANSETRON 4 MG/2 ML VIAL IVP PRN ×2 (10:10→13:09)
[2020-06-21] MEDS ORDERED: ATROPINE ABBOJECT 1 MG/10 ML SYRINGE IVP PRN (10:10)
[2020-06-21] MEDS ORDERED: MORPHINE 2 MG/ML CARPUJECT IVP PRN (10:10)
[2020-06-21] MEDS ORDERED: LIDOCAINE 2%-EPI 1:100000 20 ML MDV SUBQ ONE (10:39)
[2020-06-21] MEDS ORDERED: BUPIVACAINE 0.5% PF 30 ML VIAL SUBQ ONE (10:39)
[2020-06-21] MEDS ORDERED: GLYCOPYRROLATE 1 MG/5 ML VIAL ONE (10:54)
[2020-06-21] MEDS ORDERED: LACTATED RINGERS 1,000 ML IV SCH (11:00)
[2020-06-21] MEDS ORDERED: SUGAMMADEX 200 MG/2 ML VIAL IVP ONE (12:48)
[2020-06-21] MEDS ORDERED: KETOROLAC 30 MG/ML VIAL ONE (12:59)
[2020-06-21] MEDS: HYDROmorphone 0.5 MG/0.5 ML SYRINGE IVP PRN ×5 (13:13→21:37)
--- NOTE | 2020-06-21 13:15 | OPERATIVE REPORT ---
Operative Report - General Procedure Date: 06/21/20 Planned Procedure: TLH, Cysto Pre-Op Diagnosis: MENORRHAGIA DYSMENORRHEA Procedure Performed: TLH, Cysto - Procedure Note Primary Surgeon: Ariel Wadsworth MD Secondary Surgeon: Bertha Lees Anesthesia Technique: General ET tube IV Fluids (mL): 1,600 Estimated Blood Loss (mL): 150 Urine Output (mL): 350
[2020-06-21] MEDS ORDERED: HYDROmorphone 1 MG/ML CARPUJECT ONE (13:20)
--- NOTE | 2020-06-21 14:08 | OPERATIVE REPORT ---
DATE OF SERVICE: 06/21/2020 Physician: Ariel Wadsworth MD PREOPERATIVE DIAGNOSES 1. Menorrhagia. 2. Dysmenorrhea. POSTOPERATIVE DIAGNOSES 1. Menorrhagia. 2. Dysmenorrhea. PROCEDURE PERFORMED; Total laparoscopic hysterectomy. SURGEON: Ariel Wadsworth MD EMERGENCY ROOM DOCTOR: Yudelka Lees MD ANESTHESIA PROVIDEER: Tien Yee CRNA ANESTHETIC: General via ET tube. FINDINGS: Upon entering the abdominal cavity, there was no evidence. The uterus showed evidence of previously having had her tubes removed. As previously told her right ovary is much smaller than her left. Cystoscopy showed evidence of good urine flow through both ureteral orifices. There was no evidence of any injury to the bladder mucosa. PROCEDURE: Following adequate endotracheal anesthesia, the patient was placed in the supine position in Josh stirrups. At this point, a pelvic examination was performed in which the uterus feels to be about roughly 8-9 cm in size. She was then prepped and draped in the usual fashion. A Talbot catheter was placed under sterile condition. At this time, a timeout was performed, at which concerns were addressed. Procedure commenced. A speculum was placed in the vagina. The cervix was visualized and grasped with a single-tooth tenaculum. The uterosacral ligaments were injected bilaterally with 5 mL of 0.25% Marcaine with 1% lidocaine with epinephrine. The uterus was sounded to roughly 8 cm and then a manipulator 4 cm size was placed in the uterine cavity. The balloons were then inflated. Both the intracavitary as well as the vaginal balloon. The chamfering machine operator's gloves were changed. At this point, a stab wound was made in the subumbilical region with a #11 blade. This was done following a local anesthetic with 0.25% Marcaine with epinephrine and 1% lidocaine. The trocar was placed in a single pass. Two additional ports were placed, both in the left and the right lower quadrants. The pelvis was inspected with evidence of both tubes being gone bilaterally as well as the right ovary being diminished in volume. Both ureters were identified. The left uteroovarian ligament was cross clamped with LigaSure and then transected. The round ligament was also cauterized and transected. The broad ligament was opened and then the anterior leaf of the broad ligament was carried down across the lower uterine segment. A bladder flap was then developed at this time. The posterior leaf of the broad ligament was cauterized and transected with LigaSure. The uterine vessel was then identified, cauterized and transected. This was carried down to the lower portion of the cervix. The left side was treated in identical fashion. Dr. Lees performed the transection and cautery with the LigaSure, both of the round ligaments, anterior leaf of the broad ligament as well as the posterior leaf of the broad ligament and the uteroovarian ligament. The bladder was pushed free, and the lower portion of the cervix was skeletonized of any blood vessels. At this point, the cervix was amputated from the apex of the vagina utilizing the Harmonic scalpel. Good hemostasis was observed. The uterus was then brought out through the vagina, and then an Asepto syringe was placed to maintain pneumoperitoneum. The apex of the vagina was noted to be oozing, particularly on the left-hand side. This was treated with an 0 V-Loc suture with evidence of good hemostasis. The entire apex of the vagina was then closed back on itself with the 0 V-Loc suture, this was then cut. The pelvis showed no evidence of any further bleeding at this time. The CO2 was allowed to escape. At this point, the abdominal incisions were closed utilizing 4-0 Monocryl. Cystoscopy was performed, and there was evidence of good ureteral flow through both ureteral orifices. The Talbot catheter was then replaced. The patient tolerated the procedure well and was taken to recovery in stable condition. Sponge and needle counts were correct. Dr. Lees's assistance during the case was instrumental to its success. TD: 06/21/2020 13:23 PATO
[2020-06-21] MEDS: oxyCODONE 5 MG TABLET PO PRN ×2 (15:02→19:24)
--- NOTE | 2020-06-21 15:04 | ANESTHESIA POST OP EVALUATION ---
Anesthesia Post Eval - Post Anesthesia Eval Vitals: Last Vital Signs Temp 36.7 C 06/21/20 14:45 Pulse 62 06/21/20 15:00 Resp 18 06/21/20 15:00 BP 116/51 L 06/21/20 15:00 Pulse Ox 97 06/21/20 15:00 CV Function Including HR & BP: positive: Stable Pain Control: positive: Satisfactory Nausea & Vomiting: positive: Negative Mental Status: positive: Baseline Respiratory Status: Airway Patent Hydration Status: Satisfactory Anesthesia Complications: positive: None
--- NOTE | 2020-06-21 16:13 | PHARMACY PROGRESS NOTE ---
- Best Possible Medication History Admit Date and Time: Processed by: Pharmacy Medication History completed: Yes Patient Interview: Completed (Pt interviewed by Jeannette 06/21) Secondary Source(s): Insurance records As the person ultimately responsible for medication therapy, providers are able to order a medication from an existing home medication list in [facility] via the "Reconcile Routine" prior to Confirmation of that medication by operations support professionals. Such practice is discouraged except when the physician, in their clinical judgment, deems that a medical need exists for a medication without regard to previous use.
[2020-06-21] MEDS: KETOROLAC 30 MG/ML VIAL IVP PRN ×2 (16:24→22:57)
[2020-06-21] MEDS: FAMOTIDINE 20 MG TABLET PO SCH (17:15)
[2020-06-22] MEDS: oxyCODONE 5 MG TABLET PO PRN ×4 (00:12→16:15)
[2020-06-22] MEDS: HYDROmorphone 0.5 MG/0.5 ML SYRINGE IVP PRN ×7 (03:12→14:12)
[2020-06-22] MEDS: KETOROLAC 30 MG/ML VIAL IVP PRN ×2 (06:20→12:01)
--- NOTE | 2020-06-22 08:29 | PROVIDER PROGRESS NOTE ---
Subjective - General Procedure Date: 06/21/20 Post Op Days: 1 Procedure Performed: TLH with Cysto - Review of Systems Wound/Incisions: positive: Healing well, Dressing dry and intact Gastrointestinal: positive: Abdominal pain (09/21), Flatus Objective - Patient Data Reviewed Vital Signs: Yes Vital Signs: Vital Signs x48h Temp Pulse Resp BP Pulse Ox 06/22/20 06:22 36.9 C 49 L 20 91/35 L 98 06/22/20 03:58 37.0 C 06/22/20 03:52 56 L 18 107/57 L 98 06/22/20 03:04 36.8 C 47 L 20 91/33 L 98 Weight: Weight 06/20/20 06/21/20 06/22/20 23:59 23:59 23:59 Weight (kg) 91 kg Intake & Output: Intake and Output Totals x24h 06/20/20 06/21/20 06/22/20 23:59 23:59 23:59 Intake Total 1236 Output Total 1450 950 Balance -214 -950 - Current Medications Current Medications: Current Medications Generic Name Dose Route Start Last Admin Trade Name Freq PRN Reason Stop Dose Admin Famotidine 20 mg 06/21/20 18:00 06/21/20 17:15 Famotidine 20 Mg Tablet PO 20 mg BID EUNICE Administration Hydromorphone HCl 0.5 mg 06/21/20 13:09 06/22/20 08:02 Hydromorphone 0.5 Mg/0.5 Ml Syringe IVP 0.5 mg Q30M PRN Administration Breakthrough Pain Ketorolac Tromethamine 30 mg 06/21/20 13:11 06/22/20 06:20 Ketorolac 30 Mg/Ml Vial IVP 06/26/20 13:10 30 mg Q6HR PRN Administration PAIN Oxycodone HCl 5 mg 06/21/20 13:09 06/22/20 08:02 Oxycodone 5 Mg Tablet PO 5 mg Q4HR PRN Administration PAIN - Physical Exam Wound/Incisions: positive: Dressing dry and intact, No drainage General Appearance: positive: Alert, Mild distress Respiratory: positive: Chest non-tender, No respiratory distress, Wheezes Cardiovascular: positive: Regular rate & rhythm, No murmur, No gallop Back: negative: CVA tenderness (R), CVA tenderness (L) Skin: positive: Color nml, Warm, Dry Extremities: negative: Calf tenderness, Joint swelling, Yvette's sign/cords Neurologic/Psychiatric: positive: Oriented x3 Impression/Plan - Problem List Problem List: POD #1 Working on pain control. remove laguerre Ambulate. CBC
[2020-06-22 08:40] LABS: BASOPHILS # (AUTO) 0.1 10^3/uL (0.0-0.1); BASOPHILS % (AUTO) 0.5 %; EOSINOPHILS # (AUTO) 0.2 10^3/uL (0.0-0.7); EOSINOPHILS % (AUTO) 1.7 %; HCT - HEMATOCRIT 37.2 % (37.0-47.0); HGB - HEMOGLOBIN 11.7 g/dL (12.0-16.0); LYMPHOCYTES # (AUTO) 3.5 10^3/uL (1.5-3.5); MEAN CORPUSCULAR HEMOGLOBIN 27.1 pg (27.0-31.0); MEAN CORPUSCULAR HGB CONC 31.5 g/dL (32.0-36.0); MEAN CORPUSCULAR VOLUME 86.3 fL (81.0-99.0); MEAN PLATELET VOLUME 10.2 fL (7.9-10.8); MONOCYTES % (AUTO) 9.1 %; NEUTROPHILS # (AUTO) 6.4 10^3/uL (1.5-6.6); NEUTROPHILS % (AUTO) 57.5 %; PLT - PLATELET COUNT 277 10^3/uL (130-450); RED BLOOD COUNT 4.31 10^6/uL (4.20-5.40); RED CELL DISTRIBUTION WIDTH 12.9 % (12.0-15.0); WHITE BLOOD COUNT 11.1 x10^3/uL (4.8-10.8)
[2020-06-22] MEDS: FAMOTIDINE 20 MG TABLET PO SCH (08:58)
[2020-06-22] MEDS ORDERED: BISACODYL 10 MG SUPP PR PRN (12:54)
--- NOTE | 2020-06-22 17:13 | PROVIDER PROGRESS NOTE ---
Subjective - General Procedure Date: 06/21/20 Post Op Days: 1 Procedure Performed: TLH with Cysto - Review of Systems Wound/Incisions: positive: Dressing dry and intact, No drainage General: positive: No symptoms (PAIN 4/10 NEEDS DILAUDID AT TIMES. NOW PASSING LARGE AMOUNTS OF FLATUS) Gastrointestinal: positive: Abdominal pain (6/10), Flatus (COPIOUS) Genitourinary: positive: No symptoms Objective - Patient Data Reviewed Vital Signs: Yes Vital Signs: Vital Signs x48h Temp Pulse Resp BP Pulse Ox 06/22/20 15:59 102/44 L 06/22/20 15:00 36.8 C 46 L 18 88/45 L 98 06/22/20 11:51 37.0 C 50 L 18 112/49 L 100 Weight: Weight 06/20/20 06/21/20 06/22/20 23:59 23:59 23:59 Weight (kg) 91 kg Intake & Output: Intake and Output Totals x24h 06/20/20 06/21/20 06/22/20 23:59 23:59 23:59 Intake Total 1236 480 Output Total 1450 1500 Balance -214 -1020 - Lab Results Lab Results: 06/22/20 08:37 Other Lab Results: Lab Results x24hrs 06/22/20 Range/Units 08:37 WBC 11.1 H (4.8-10.8) x10^3/uL RBC 4.31 (4.20-5.40) 10^6/uL Hgb 11.7 L (12.0-16.0) g/dL Hct 37.2 (37.0-47.0) % MCV 86.3 (81.0-99.0) fL MCH 27.1 (27.0-31.0) pg MCHC 31.5 L (32.0-36.0) g/dL RDW 12.9 (12.0-15.0) % Plt Count 277 (130-450) 10^3/uL MPV 10.2 (7.9-10.8) fL Neut # (Auto) 6.4 (1.5-6.6) 10^3/uL Lymph # (Auto) 3.5 (1.5-3.5) 10^3/uL [place] # (Auto) 1.0 (0.0-1.0) 10^3/uL Eos # (Auto) 0.2 (0.0-0.7) 10^3/uL Baso # (Auto) 0.1 (0.0-0.1) 10^3/uL Absolute Nucleated RBC 0.00 x10^3/uL Nucleated RBC % 0.0 /100WBC - Current Medications Current Medications: Current Medications Generic Name Dose Route Start Last Admin Trade Name Freq PRN Reason Stop Dose Admin Bisacodyl 10 mg 06/22/20 12:54 06/22/20 16:15 Bisacodyl 10 Mg Supp CO 10 mg DAILY PRN Administration Constipation Famotidine 20 mg 06/21/20 18:00 06/22/20 08:58 Famotidine 20 Mg Tablet PO 20 mg BID EUNICE Administration Hydromorphone HCl 0.5 mg 06/21/20 13:09 06/22/20 14:12 Hydromorphone 0.5 Mg/0.5 Ml Syringe IVP 0.5 mg Q30M PRN Administration Breakthrough Pain Ondansetron HCl 4 mg 06/21/20 13:09 06/22/20 12:02 Ondansetron 4 Mg/2 Ml Vial IVP 4 mg Q6HR PRN Administration Nausea / Vomiting Oxycodone HCl 5 mg 06/21/20 13:09 06/22/20 16:15 Oxycodone 5 Mg Tablet PO 5 mg Q4HR PRN Administration PAIN - Physical Exam General Appearance: positive: No acute distress, Alert Impression/Plan - Problem List Problem List: POD # 1 SLOW PROGRESS WITH PAIN CONTROL .
[2020-06-22] MEDS ORDERED: IBUPROFEN 600 MG TABLET PO SCH (18:00)
[2020-06-22] MEDS ORDERED: SIMETHICONE CHEW 80 MG TABLET PO SCH (18:00)
[2020-06-22 18:34] VITALS: BP 115/43
== END 2020-06-22 19:00 | disposition home or self-care (01) ==
LOC: SDS 07:48 → MS2 14:19 → SDS 06-22 17:06 → MS2 06-22 17:07
PROVIDERS: ADMIT Obstetrics & Gynecology; ATTEND Obstetrics & Gynecology
PROC: 0UT94ZZ Resection of Uterus, Percutaneous Endoscopic Approach (ICD-10-PCS; principal; 2020-06-21 09:30)
DX: D25.1 Intramural leiomyoma of uterus (principal); N92.0 Excessive and frequent menstruation with regular cycle; N94.6 Dysmenorrhea, unspecified; E03.9 Hypothyroidism, unspecified; F17.210 Nicotine dependence, cigarettes, uncomplicated; F32.9 Major depressive disorder, single episode, unspecified; F41.9 Anxiety disorder, unspecified; F43.10 Post-traumatic stress disorder, unspecified; G89.29 Other chronic pain; M54.9 Dorsalgia, unspecified; E66.3 Overweight; Z68.26 Body mass index [BMI] 26.0-26.9, adult; Z72.89 Other problems related to lifestyle; Z79.899 Other long term (current) drug therapy
CPT/HCPCS: 36415; 58570; 81025; 85025; A9270; J0131; J0690; J1170; J3490; J7120

== ENCOUNTER 2020-08-02 07:44 | Outpatient (CLI) | payer MEDICAID ==
[2020-08-02 08:00] LABS: HGB - HEMOGLOBIN 13.8 g/dL (12.0-16.0); MEAN CORPUSCULAR HEMOGLOBIN 26.9 pg (27.0-31.0); MEAN CORPUSCULAR HGB CONC 32.1 g/dL (32.0-36.0); MEAN CORPUSCULAR VOLUME 83.8 fL (81.0-99.0); MEAN PLATELET VOLUME 9.7 fL (7.9-10.8); RED BLOOD COUNT 5.13 10^6/uL (4.20-5.40); RED CELL DISTRIBUTION WIDTH 13.1 % (12.0-15.0); WHITE BLOOD COUNT 8.2 x10^3/uL (4.8-10.8)
[2020-08-02 08:20] LABS: CHOL/HDL RATIO 5.4 (<4.4); CHOLESTEROL 204 mg/dL; HDL CHOLESTEROL 38 mg/dL; LDL CHOLESTEROL,CALCULATED 138 mg/dL; LDL/HDL RATIO 3.6 (<4.4); TRIGLYCERIDES 140 mg/dL; VLDL CHOLESTEROL 28 mg/dL
[2020-08-02 08:31] LABS: THYROID STIMULATING HORMONE 0.23 uIU/mL (0.34-5.60)
[2020-08-02 11:53] LABS: FREE T4 (FREE THYROXINE) 1.33 ng/dL (0.58-1.64)
== END 2020-08-02 07:45 | disposition home or self-care (01) ==
LOC: LAB 07:44
PROVIDERS: ATTEND Obstetrics & Gynecology
DX: E78.5 Hyperlipidemia, unspecified (principal); R10.2 Pelvic and perineal pain; E03.9 Hypothyroidism, unspecified
CPT/HCPCS: 36415; 80061; 83721; 84439; 84443; 85027

== ENCOUNTER 2020-08-03 14:41 | Outpatient (CLI) | payer MEDICAID ==
--- NOTE | 2020-08-04 12:16 | Ultrasound Report ---
PROCEDURE: Pelvic w/Transvaginal INDICATIONS: PELVIC PAIN TECHNIQUE: Real-time scanning was performed of the pelvic organs, with image documentation. Additional endovagi nal scanning was necessary due to incomplete visualization of the adnexal and endometrial structures by transabdominal scanning. COMPARISON: None. FINDINGS: No pathologic free abdominal or pelvic fluid. Uterus: Status post hysterectomy Ovaries: Right ovary measures 1.9 x 2.2 x 2.4 cm. Right ovarian volume measures 5.2 mL. There is a 1 .2 cm complex cyst in the right ovary. Left ovary measures 2.6 x 1.3 x 3.1 cm with ovarian volume of 5.5 mL. Two complex cyst noted in the left ovary with one measuring 1.4 cm and the second measuring 1 .5 cm. No associated vascularity. IMPRESSION: 1. Status post hysterectomy. 2. Bilateral complex ovarian cysts more numbering 2 on the left and one on the right. These may repre sent resolving hemorrhagic cysts. However, small solid lesion not excluded. Recommend follow-up pelvi c ultrasound in 6-8 weeks to document stability versus resolution. Reviewed by: Roscoe Hernandez MD on 08/04/2020 11:14 AM KAT[facility] Approved by: Roscoe Hernandez MD on 08/04/2020 11:14 AM KATELYN Station ID: [id number]
== END 2020-08-03 14:42 | disposition home or self-care (01) ==
LOC: DI 14:41
PROVIDERS: ATTEND Obstetrics & Gynecology
DX: N83.292 Other ovarian cyst, left side (principal); N83.291 Other ovarian cyst, right side; Z90.710 Acquired absence of both cervix and uterus

== ENCOUNTER 2021-01-17 12:26 | Outpatient (CLI) | payer MEDICAID | END 2021-01-17 12:27 | disposition home or self-care (01) | LOC: COV 12:26 | PROVIDERS: ATTEND Family Medicine | DX: R05.9 Cough, unspecified (principal); M79.10 Myalgia, unspecified site; R53.83 Other fatigue; R19.7 Diarrhea, unspecified; R09.81 Nasal congestion; J34.89 Other specified disorders of nose and nasal sinuses; Z20.822 Contact with and (suspected) exposure to COVID-19 ==

== ENCOUNTER 2021-02-13 19:05 | Emergency (ER) | payer MEDICAID ==
[2021-02-13] MEDS ORDERED: MORPHINE 10 MG/ML VIAL IVP STA (19:34)
--- NOTE | 2021-02-13 19:39 | ED Physician Documentation ---
History of Present Illness - Stated complaint Stated Complaint: FEMALE - Chief complaint Chief Complaint: General - History obtained from History obtained from: Patient - History of Present Illness Pain level max: 7 Pain level now: 5 - Additonal information Additional information: Patient is a 40-year-old female who presents to the emergency department stating that she has had issues since her total abdominal hysterectomy back in June. She states that she started developing increasing abdominal pain about 5 to 6 days ago. While having intercourse 2 nights ago the lower abdominal pain increased. She now feels like there is "something falling out of my vagina". She has an appointment with gynecology on February 22. Increasing pain tonight so came in for evaluation. Worse with palpation and movement. Nothing makes it better. 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 : Kidney stones HEENT: Chronic vision loss, Other Psych: Depression, Anxiety, Claustrophobia Musculoskeletal: Chronic back pain, Other Derm: None - Past Surgical History Past Surgical History: Yes General: Cholecystectomy, EGD Ortho: Arthroscopic surgery, Other /CHANNELING MACHINE RUNNER: Tubal ligation, Hysterectomy - Present Medications Home Medications: Ambulatory Orders Medication Instructions Recorded Confirmed Citalopram [CeleXA] 40 mg PO DAILY 03/24/14 06/21/20 Levothyroxine [Synthroid] 225 mcg PO DAILY 03/24/14 06/21/20 Acetaminophen [Tylenol] 650 mg PO Q6H PRN 06/12/20 06/21/20 Ibuprofen [Motrin] 600 mg PO Q6H PRN 06/12/20 06/21/20 - Allergies Allergies/Adverse Reactions: Allergies Allergy/AdvReac Type Severity Reaction Status Date / Time bupropion [From Wellbutrin] Allergy facial Verified 06/21/20 08:38 numbess, neurological problems diclofenac AdvReac Severe Nausea Verified 06/21/20 08:38 erythromycin base AdvReac Severe Nausea Verified 06/21/20 08:38 - Social History Does the pt smoke?: Yes Smoking Status: Former smoker Does the pt drink ETOH?: No Does the pt have substance abuse?: Yes - Immunizations Immunizations are current?: Yes - POLST Patient has POLST: No PD ED PE NORMAL - Vitals Vital signs reviewed: Yes - General General: Alert and oriented X 3, No acute distress, Well developed/nourished - HEENT HEENT: PERRL, Moist mucous membranes - Neck Neck: Supple, no meningeal sign - Cardiac Cardiac: RRR, Strong equal pulses - Respiratory Respiratory: No respiratory distress, Clear bilaterally - Abdomen Abdomen: Soft, Non distended, Other (diffusely TTP across the lower abdomen.) - Female Female : Other (Patient is diffusely tender on pelvic exam. With bearing down, she has a prolapse of the bladder on the anterior wall. No discharge.) - Derm Derm: Warm and dry - Extremities Extremities: No deformity - Neuro Neuro: Alert and oriented X 3 - Psych Psych: Normal mood, Normal affect Results - Vitals Vitals: Vital Signs - 24 hr 02/13/21 02/13/21 19:12 21:34 Temperature 36.7 C Heart Rate 104 H 80 Respiratory 16 16 Rate Blood Pressure 145/91 H 131/73 H O2 Saturation 96 98 Oxygen O2 Source Room air - Labs Labs: Laboratory Tests 02/13/21 02/13/21 02/13/21 17:50 17:50 17:50 WBC 8.5 RBC 5.14 Hgb 13.6 Hct 42.5 MCV 82.7 MCH 26.5 L MCHC 32.0 RDW 12.4 Plt Count 394 MPV 9.6 Neut # (Auto) 4.5 Lymph # (Auto) 2.6 [place] # (Auto) 0.7 Eos # (Auto) 0.5 Baso # (Auto) 0.1 Absolute Nucleated RBC 0.00 Nucleated RBC % 0.0 Sodium 137 Potassium 4.2 Chloride 101 Carbon Dioxide 25 Anion Gap 11.0 BUN 10 Creatinine 0.9 Estimated GFR (MDRD) 69 L Glucose 103 H Calcium 9.5 Total Bilirubin 0.2 AST 23 ALT 23 Alkaline Phosphatase 88 Total Protein 7.8 Albumin 4.5 Globulin 3.3 Albumin/Globulin Ratio 1.4 Lipase 28 Urine Color YELLOW Urine Clarity CLEAR Urine pH 5.0 Ur Specific [place] 1.025 Urine Protein NEGATIVE Urine Glucose (UA) NEGATIVE Urine Ketones NEGATIVE Urine Occult Blood NEGATIVE Urine Nitrite NEGATIVE Urine Bilirubin NEGATIVE Urine Urobilinogen 0.2 (NORMAL) Ur Leukocyte Esterase NEGATIVE Ur Microscopic Review NOT INDICATED Urine Culture Comments NOT INDICATED - Rads (name of study) CT abdomen and pelvis Radiology: Other (Pending at the time of signout) PD MEDICAL DECISION MAKING - ED course Complexity details: reviewed results, re-evaluated patient, considered differential, d/w patient ED course: 40-year-old female presents to the emergency department with pelvic pain, worsening over the past few days. She appears to have a bladder prolapse on physical examination. She is tender diffusely across the lower abdomen. Therefore a CT scan of the abdomen pelvis was ordered. This is pending at the time of signout. If the CT is normal, she will be able to be discharged home with pain medication to follow-up with gynecology next week. Patient signed out to the oncoming emergency department physician. Departure - Departure Clinical Impression: Bladder prolapse, Pelvic pain Condition: Stable
[2021-02-13] MEDS ORDERED: IOVERSOL 320 100 ML VIAL IVP ONE ×2 (19:54→21:54)
[2021-02-13 19:56] LABS: BASOPHILS # (AUTO) 0.1 10^3/uL (0.0-0.1); BASOPHILS % (AUTO) 1.6 %; EOSINOPHILS # (AUTO) 0.5 10^3/uL (0.0-0.7); EOSINOPHILS % (AUTO) 5.8 %; HCT - HEMATOCRIT 42.5 % (37.0-47.0); HGB - HEMOGLOBIN 13.6 g/dL (12.0-16.0); LYMPHOCYTES # (AUTO) 2.6 10^3/uL (1.5-3.5); LYMPHOCYTES % (AUTO) 30.8 %; MEAN CORPUSCULAR HEMOGLOBIN 26.5 pg (27.0-31.0); MEAN CORPUSCULAR VOLUME 82.7 fL (81.0-99.0); MEAN PLATELET VOLUME 9.6 fL (7.9-10.8); MONOCYTES # (AUTO) 0.7 10^3/uL (0.0-1.0); MONOCYTES % (AUTO) 8.6 %; NEUTROPHILS # (AUTO) 4.5 10^3/uL (1.5-6.6); PLT - PLATELET COUNT 394 10^3/uL (130-450); RED BLOOD COUNT 5.14 10^6/uL (4.20-5.40); RED CELL DISTRIBUTION WIDTH 12.4 % (12.0-15.0); WHITE BLOOD COUNT 8.5 x10^3/uL (4.8-10.8)
[2021-02-13 19:57] LABS: BILIRUBIN,URINE NEGATIVE (NEGATIVE); GLUCOSE, URINE (UA) NEGATIVE (NEGATIVE); KETONES,URINE (UA) NEGATIVE (NEGATIVE); LEUKOCYTE ESTERASE, URINE NEGATIVE (NEGATIVE); NITRITE,URINE NEGATIVE (NEGATIVE); OCCULT BLOOD,URINE NEGATIVE (NEGATIVE); PROTEIN,URINE NEGATIVE (NEGATIVE); UROBILINOGEN,URINE 0.2 (NORMAL) E.U./dL (NORMAL)
[2021-02-13 20:01] LABS: CLARITY,URINE CLEAR (CLEAR)
[2021-02-13 20:23] LABS: ALBUMIN 4.5 g/dL (3.2-5.5); ALBUMIN/GLOBULIN RATIO 1.4 (1.0-2.2); BILIRUBIN,TOTAL 0.2 mg/dL (0.2-1.0); CALCIUM 9.5 mg/dL (8.5-10.3); CREATININE 0.9 mg/dL (0.4-1.0); POTASSIUM 4.2 mmol/L (3.5-5.0); TOTAL PROTEIN 7.8 g/dL (6.7-8.2)
[2021-02-13] MEDS ORDERED: ONDANSETRON 4 MG/2 ML VIAL IVP STA (20:32)
[2021-02-13] MEDS ORDERED: MORPHINE 2 MG/ML CARPUJECT IVP STA (21:43)
--- NOTE | 2021-02-13 22:28 | CT Report ---
PROCEDURE: Abdomen/Pelvis W INDICATIONS: diffuse abd pain, lower s/p SHANNON CONTRAST: IV CONTRAST: Optiray 320 ml: 100 PO CONTRAST: *NO PO CONTRAST TECHNIQUE: After the administration of weight appropriate dose of intravenous contrast, 5 mm thick sections acqu ired from the diaphragms to the symphysis. 5 mm thick coronal and sagittal reformats were acquired. For radiation dose reduction, the following was used: automated exposure control, adjustment of mA and/or kV according to patient size. COMPARISON: 07/24/2015 CT not available for review secondary to technical issues. FINDINGS: Image quality: Excellent. ABDOMEN: Lung bases: Mild bibasilar atelectasis. Heart size is normal. Solid organs: Liver and spleen are normal in size and enhancement. Gallbladder is surgically absent . Biliary system is non dilated. Pancreas enhances normally. No right-sided adrenal nodules. Ther e is an indeterminate 2.7 x 2.1 cm left adrenal nodule. Kidneys demonstrate normal size and enhanceme nt, without hydronephrosis. Peritoneum and bowel: Bowel loops demonstrate normal wall thickness and caliber. No free fluid or a ir. Normal appendix. Nodes and vessels: No retroperitoneal or mesenteric adenopathy by size criteria. Aorta and inferior vena cava are normal in size. Scattered atherosclerotic calcifications of the abdominal aorta are n oted. Miscellaneous: No ventral hernias. PELVIS: Genitourinary: Bladder wall thickness is normal. Status post hysterectomy. Miscellaneous: No inguinal hernias or adenopathy. Bones: No suspicious bony lesions. No acute vertebral body compression fractures. Multilevel spondy losis of the imaged spine. IMPRESSION: 1. CT abdomen and pelvis without acute abnormalities to explain patient's symptoms. 2. Normal appendix. 3. Status post cholecystectomy and hysterectomy. 4. Indeterminate 2.7 x 2.1 cm left adrenal nodule. This appears mildly increased in size compared to report dated 07/24/2015 (images not able to be reviewed secondary to technical issues) which stated th at the left adrenal nodule measured 2.3 x 1.9 cm at that time. Recommend outpatient abdominal CT (wit hout and with contrast) using adrenal mass protocol to further characterize. Reviewed by: Roscoe Perez MD on 02/13/2021 10:27 PM PDT Approved by: Roscoe Perez MD on 02/13/2021 10:27 PM PDT Station ID: [id number]
[2021-02-13] MEDS ORDERED: oxyCODONE/ACET 5/325 Prepack 4 PO STA (23:06)
[2021-02-13 23:20] VITALS: BP 132/74
--- NOTE | 2021-02-19 23:09 | ED Physician Documentation ---
ED Addendum - Addendum Addendum: 02/19/21 23:07 Received sign out from Dr. Pham at end of his shift, patient disposition is pending CT results and reevaluation. CT results do not evidence findings that would correlate/explain tonight's symptoms. I reviewed results with patient, including the incidental finding of a n adrenal mass; I explained that this is not causing symptoms but stressed the importance of following up with her primary care provider regarding this finding, as further tests might be needed to aid in determining that it is benign (not cancer). She is in NAD on reevaluation and says she is comfortable being discharged home. Return precautions discussed.
== END 2021-02-13 23:52 | disposition home or self-care (01) ==
LOC: ED 19:05
DX: Z87.891 Personal history of nicotine dependence (principal); N81.10 Cystocele, unspecified
CPT/HCPCS: 36415; 74177; 80053; 81003; 83690; 85025; 96374; 96375; 96376; 99284; Q9967; 81001; 87086

== ENCOUNTER 2021-02-22 08:00 | Outpatient (CLI) | payer MEDICAID ==
[2021-02-23 19:13] LABS: BACTERIAL VAGINOSIS DNA NEGATIVE (NEGATIVE); CANDIDA GLABRATA DNA NEGATIVE (NEGATIVE); CANDIDA GROUP DNA NEGATIVE (NEGATIVE); CANDIDA KRUSEI DNA NEGATIVE (NEGATIVE); TRICHOMONAS VAGINALIS DNA NEGATIVE (NEGATIVE)
== END 2021-02-22 23:59 | disposition home or self-care (01) ==
LOC: LAB.WC 08:00
PROVIDERS: ATTEND Obstetrics & Gynecology
DX: R10.2 Pelvic and perineal pain (principal)
CPT/HCPCS: 87661; 87801

== ENCOUNTER 2021-04-09 17:17 | Emergency (ER) | payer MEDICAID ==
[2021-04-09] MEDS ORDERED: ALBUTEROL 1 PUFF INH STA (18:16)
[2021-04-09] MEDS ORDERED: BENZONATATE 100 MG CAPSULE PO STA (18:16)
[2021-04-09] MEDS ORDERED: predniSONE 20 MG TABLET PO STA (18:16)
[2021-04-09] MEDS ORDERED: IBUPROFEN 800 MG TABLET PO STA (18:27)
--- NOTE | 2021-04-09 18:27 | XRAY Report ---
PROCEDURE: Chest 1 View X-Ray INDICATIONS: cough x 14 days TECHNIQUE: One view of the chest was acquired. COMPARISON: Lung bases on CT abdomen and pelvis 02/13/2021. FINDINGS: Surgical changes and devices: None. Lungs and pleura: No pleural effusions or pneumothorax. Lungs are clear. Mediastinum: Mediastinal contours appear normal. Heart size is normal. Bones and chest wall: No suspicious bony lesions. Overlying soft tissues appear unremarkable. IMPRESSION: No acute cardiopulmonary abnormality. Reviewed by: Gopi Sanders MD on 04/09/2021 6:25 PM PST Approved by: Gopi Sanders MD on 04/09/2021 6:25 PM [facility] Station ID: [id number]
--- NOTE | 2021-04-09 18:35 | ED Physician Documentation ---
PD HPI URI - Stated complaint Stated Complaint: COUGH,STUFFY NOSE - Chief complaint Chief Complaint: Resp - History obtained from History obtained from: Patient - History of Present Illness Timing - onset: How many days ago (14) Timing duration: Days (14) Timing details: Gradual onset Pain level max: 5 Pain level now: 4 Associated symptoms: Nasal congestion, Rhinorrhea. No: Fever, Chills Contributing factors: Sick contact Improves by: Rest Worsened by: Activity, Breathing Recently seen: Not recently seen - Additional information Additional information: Patient with cough and congestion for the past 14 days. She has not had her Covid vaccination. She stopped smoking about a month ago. 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 : Kidney stones HEENT: Chronic vision loss, Other Psych: Depression, Anxiety, Claustrophobia Musculoskeletal: Chronic back pain, Other Derm: None - Past Surgical History Past Surgical History: Yes General: Cholecystectomy, EGD Ortho: Arthroscopic surgery, Other /SCRAP MATERIALS BUYER: Tubal ligation, Hysterectomy - Present Medications Home Medications: Ambulatory Orders Medication Instructions Recorded Confirmed Citalopram [CeleXA] 40 mg PO DAILY 03/24/14 06/21/20 Levothyroxine [Synthroid] 225 mcg PO DAILY 03/24/14 06/21/20 Acetaminophen [Tylenol] 650 mg PO Q6H PRN 06/12/20 06/21/20 Ibuprofen [Motrin] 600 mg PO Q6H PRN 06/12/20 06/21/20 oxyCODONE/ACET 5/325 [Percocet 5 1 each PO Q4-6H PRN #14 tablet 02/13/21 mg/325 mg] Albuterol Sulf [Ventolin Hfa 1 - 2 puffs INH Q4HR PRN #1 inhaler 04/09/21 Inhaler] Benzonatate [Tessalon] 200 mg PO TID PRN #30 cap 04/09/21 Cetirizine HCl/Pseudoephedrine 1 each PO BID PRN #30 ea 04/09/21 [Zyrtec-D Tablet] predniSONE [Deltasone] 10 mg PO [id number] #42 tab 04/09/21 - Allergies Allergies/Adverse Reactions: Allergies Allergy/AdvReac Type Severity Reaction Status Date / Time bupropion [From Wellbutrin] Allergy facial Verified 04/09/21 17:25 numbess, neurological problems diclofenac AdvReac Severe Nausea Verified 04/09/21 17:25 erythromycin base AdvReac Severe Nausea Verified 04/09/21 17:25 - Social History Does the pt smoke?: Yes Smoking Status: Former smoker Does the pt drink ETOH?: No Does the pt have substance abuse?: Yes - Immunizations Immunizations are current?: Yes - POLST Patient has POLST: No PD ED PE NORMAL - Vitals Vital signs reviewed: Yes - General General: Alert and oriented X 3, No acute distress, Well developed/nourished - HEENT HEENT: Ears normal, Moist mucous membranes, Pharynx benign - Neck Neck: Supple, no meningeal sign - Cardiac Cardiac: RRR - Respiratory Respiratory: No respiratory distress, Other (mild wheezing B) - Abdomen Abdomen: Soft, Non tender, Non distended - Derm Derm: Warm and dry - Extremities Extremities: No edema, No calf tenderness / cord - Neuro Neuro: Alert and oriented X 3 - Psych Psych: Normal mood, Normal affect Results - Vitals Vitals: Vital Signs - 24 hr 04/09/21 04/09/21 04/09/21 17:21 18:38 18:53 Temperature 37.2 C 36.4 C L Heart Rate 90 82 67 Respiratory 20 18 20 Rate Blood Pressure 128/88 H 120/68 O2 Saturation 96 97 Oxygen O2 Source Room air - Rads (name of study) cxr Radiology: Final report received, EMP read contemporaneously, See rad report (no acute disease) PD MEDICAL DECISION MAKING - ED course Complexity details: reviewed results, re-evaluated patient, considered differential, d/w patient ED course: Patient is well-appearing, nontoxic. Afebrile. No hypoxia. No respiratory distress. No acute findings on x-ray. Feels better after albuterol treatment and steroids. We will continue supportive care at home. Covid testing performed. Patient counseled regarding signs and symptoms for which I believe and urgent re-evaluation would be necessary. Patient with good understanding of and agreement to plan and is comfortable going home at this time This document was made in part using voice recognition software. While efforts are made to proofread this document, sound alike and grammatical errors may occur. Departure - Departure Disposition: 01 Home, Self Care Clinical Impression: Upper respiratory tract infection Qualifiers: URI type: unspecified viral URI Qualified Code(s): J06.9 - Acute upper respiratory infection, unspecified Condition: Good Instructions: ED Viral Syndrome Follow-Up: Corky Singh DO [Primary Care Provider] - Within 1 week Prescriptions: Albuterol Sulf [Ventolin Hfa Inhaler] 1 - 2 puffs INH Q4HR PRN #1 inhaler PRN Reason: Shortness Of Air/Wheezing predniSONE [Deltasone] 10 mg PO [id number] #42 tab Benzonatate [Tessalon] 200 mg PO TID PRN #30 cap PRN Reason: Cough Cetirizine HCl/Pseudoephedrine [Zyrtec-D Tablet] 1 each PO BID PRN #30 ea PRN Reason: nasal congestion Comments: Please follow-up with your doctor for further care. Return if you worsen. Drink plenty of fluids and rest. Your x-ray does not show any acute abnormalities today. Your prescriptions were sent to [facility]. You have a Covid test pending. You need to self quarantine until the result is done and negative. The results should be done in 24-48 hours. We will call with a positive result, the fastest way to get a negative result for confirmation though is to go to the hospital website at [email or web address], click on the my [email or web address] tab and sign up for the patient portal. If any of your friends and/or family need to be tested, they can call the hospital at [phone] for an appointment to have their Covid test. Discharge Date/Time: 04/09/21 18:54
[2021-04-09 18:54] VITALS: BP 120/68
== END 2021-04-09 18:54 | disposition home or self-care (01) ==
LOC: ED 17:17
DX: J06.9 Acute upper respiratory infection, unspecified (principal); Z87.891 Personal history of nicotine dependence; Z20.822 Contact with and (suspected) exposure to COVID-19
CPT/HCPCS: 71045; 87635; 94640; 94664; 99283; 99284; A9270; J7512

== ENCOUNTER 2021-05-11 23:13 | Emergency (ER) | payer MEDICAID ==
[2021-05-11] MEDS ORDERED: ACETAMINOPHEN 325 MG TABLET PO STA (23:53)
[2021-05-11 23:56] LABS: BASOPHILS # (AUTO) 0.2 10^3/uL (0.0-0.1); BASOPHILS % (AUTO) 1.9 %; EOSINOPHILS % (AUTO) 11.1 %; HCT - HEMATOCRIT 41.6 % (37.0-47.0); LYMPHOCYTES # (AUTO) 1.7 10^3/uL (1.5-3.5); LYMPHOCYTES % (AUTO) 18.6 %; MEAN CORPUSCULAR HEMOGLOBIN 27.8 pg (27.0-31.0); MEAN CORPUSCULAR HGB CONC 33.7 g/dL (32.0-36.0); MEAN CORPUSCULAR VOLUME 82.5 fL (81.0-99.0); MEAN PLATELET VOLUME 10.3 fL (7.9-10.8); MONOCYTES # (AUTO) 0.9 10^3/uL (0.0-1.0); MONOCYTES % (AUTO) 9.7 %; NEUTROPHILS # (AUTO) 5.3 10^3/uL (1.5-6.6); NEUTROPHILS % (AUTO) 58.2 %; PLT - PLATELET COUNT 390 10^3/uL (130-450); RED BLOOD COUNT 5.04 10^6/uL (4.20-5.40); RED CELL DISTRIBUTION WIDTH 13.2 % (12.0-15.0); WHITE BLOOD COUNT 9.1 x10^3/uL (4.8-10.8)
[2021-05-12 00:07] LABS: ALBUMIN 4.1 g/dL (3.2-5.5); ALBUMIN/GLOBULIN RATIO 1.3 (1.0-2.2); BILIRUBIN,TOTAL 0.3 mg/dL (0.2-1.0); CALCIUM 9.3 mg/dL (8.5-10.3); CREATININE 0.8 mg/dL (0.4-1.0); TOTAL PROTEIN 7.2 g/dL (6.7-8.2)
[2021-05-12] MEDS ORDERED: LORazepam 2 MG/ML VIAL IVP STA (00:08)
[2021-05-12] MEDS ORDERED: SODIUM CHLORIDE 0.9% 500 ML IV STA (00:08)
[2021-05-12 00:11] LABS: HCG UR QUAL NEGATIVE
[2021-05-12 00:12] LABS: BILIRUBIN,URINE NEGATIVE (NEGATIVE); GLUCOSE, URINE (UA) NEGATIVE (NEGATIVE); KETONES,URINE (UA) NEGATIVE (NEGATIVE); LEUKOCYTE ESTERASE, URINE NEGATIVE (NEGATIVE); NITRITE,URINE NEGATIVE (NEGATIVE); OCCULT BLOOD,URINE NEGATIVE (NEGATIVE); PH,URINE 5.5 PH (5.0-7.5); PROTEIN,URINE NEGATIVE (NEGATIVE); UROBILINOGEN,URINE 0.2 (NORMAL) E.U./dL (NORMAL)
--- NOTE | 2021-05-12 00:13 | ED Physician Documentation ---
History of Present Illness - Stated complaint Stated Complaint: DIFF BREATHING/FEVER - Chief complaint Chief Complaint: Fever - History obtained from History obtained from: Patient - Additonal information Additional information: 40yF, daily smoker, with pmh hypothyroidism, unvaccinated against covid-19, with prior history of reactive airways, p/w fever, soa X 2 days and nonproductive cough X 6 weeks, improving but then worsening again after her household all came down with covid. She has not had a test herself but her son did test positive. denies leg swelling or pain, recent travel, surgery, hormone use, personal history of clots. Patient had one episode of post tussive emesis in the ED. Denies nausea. endorses some loose stools but no abdominal pain or urinary symptoms. Patient has chest pain with coughing. Review of Systems Ten Systems: 10 systems reviewed and negative Constitutional: reports: Fever, Chills, Myalgias, Fatigue Cardiac: reports: Chest pain / pressure Respiratory: reports: Dyspnea, Cough GI: reports: Vomiting. 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 : Kidney stones HEENT: Chronic vision loss, Other Psych: Depression, Anxiety, Claustrophobia Musculoskeletal: Chronic back pain, Other Derm: None - Past Surgical History Past Surgical History: Yes General: Cholecystectomy, EGD Ortho: Arthroscopic surgery, Other /WEB DESIGNER DEVELOPER: Tubal ligation, Hysterectomy - Present Medications Home Medications: Ambulatory Orders Medication Instructions Recorded Confirmed Citalopram [CeleXA] 40 mg PO DAILY 03/24/14 06/21/20 Levothyroxine [Synthroid] 225 mcg PO DAILY 03/24/14 06/21/20 Acetaminophen [Tylenol] 650 mg PO Q6H PRN 06/12/20 06/21/20 Ibuprofen [Motrin] 600 mg PO Q6H PRN 06/12/20 06/21/20 oxyCODONE/ACET 5/325 [Percocet 5 1 each PO Q4-6H PRN #14 tablet 02/13/21 mg/325 mg] Albuterol Sulf [Ventolin Hfa 1 - 2 puffs INH Q4HR PRN #1 inhaler 04/09/21 Inhaler] Benzonatate [Tessalon] 200 mg PO TID PRN #30 cap 04/09/21 Cetirizine HCl/Pseudoephedrine 1 each PO BID PRN #30 ea 04/09/21 [Zyrtec-D Tablet] predniSONE [Deltasone] 10 mg PO [id number] #42 tab 04/09/21 Albuterol Sulf 5 mg IH Q4H PRN #10 ml 05/12/21 Benzonatate [Tessalon] 100 mg PO TID #30 05/12/21 predniSONE [Prednisone 21-TAB dose 60 mg PO QDAC 6 Days #21 tab 05/12/21 pack] - Allergies Allergies/Adverse Reactions: Allergies Allergy/AdvReac Type Severity Reaction Status Date / Time bupropion [From Wellbutrin] Allergy facial Verified 05/11/21 23:31 numbess, neurological problems diclofenac AdvReac Severe Nausea Verified 05/11/21 23:31 erythromycin base AdvReac Severe Nausea Verified 05/11/21 23:31 - Social History Does the pt smoke?: Yes Smoking Status: Former smoker Does the pt drink ETOH?: No Does the pt have substance abuse?: Yes - Immunizations Immunizations are current?: Yes - POLST Patient has POLST: No PD ED PE NORMAL - Vitals Vital signs reviewed: Yes - General General: Alert and oriented X 3, No acute distress, Well developed/nourished - HEENT HEENT: Atraumatic, PERRL, EOMI - Neck Neck: Supple, no meningeal sign - Cardiac Cardiac: RRR - Respiratory Respiratory: No respiratory distress, Clear bilaterally - Abdomen Abdomen: Non tender, Non distended - Derm Derm: Normal color, Warm and dry - Extremities Extremities: No deformity - Neuro Neuro: Alert and oriented X 3, No motor deficit, No sensory deficit - Psych Psych: Other (anxious affect, intermittently tearful) Results - Vitals Vitals: Vital Signs - 24 hr 05/11/21 05/11/21 05/12/21 23:47 23:50 01:08 Temperature 37.6 C Heart Rate 110 H 114 H 91 Respiratory 24 22 21 Rate Blood Pressure 129/87 H 133/80 H O2 Saturation 95 96 95 Oxygen O2 Source Room air - Labs Labs: Laboratory Tests 05/11/21 05/11/21 05/11/21 23:40 23:40 23:40 WBC 9.1 RBC 5.04 Hgb 14.0 Hct 41.6 MCV 82.5 MCH 27.8 MCHC 33.7 RDW 13.2 Plt Count 390 MPV 10.3 Neut # (Auto) 5.3 Lymph # (Auto) 1.7 [place] # (Auto) 0.9 Eos # (Auto) 1.0 H Baso # (Auto) 0.2 H Absolute Nucleated RBC 0.00 Nucleated RBC % 0.0 Sodium 134 L Potassium 4.0 Chloride 99 L Carbon Dioxide 24 Anion Gap 11.0 BUN 13 Creatinine 0.8 Estimated GFR (MDRD) 79 L Glucose 108 H Lactic Acid 1.5 Calcium 9.3 Total Bilirubin 0.3 AST 28 ALT 29 Alkaline Phosphatase 81 Total Protein 7.2 Albumin 4.1 Globulin 3.1 Albumin/Globulin Ratio 1.3 Lipase 28 Urine Color Urine Clarity Urine pH Ur Specific [place] Urine Protein Urine Glucose (UA) Urine Ketones Urine Occult Blood Urine Nitrite Urine Bilirubin Urine Urobilinogen Ur Leukocyte Esterase Ur Microscopic Review Urine HCG, Qual 05/11/21 05/11/21 23:45 23:45 WBC RBC Hgb Hct MCV MCH MCHC RDW Plt Count MPV Neut # (Auto) Lymph # (Auto) [place] # (Auto) Eos # (Auto) Baso # (Auto) Absolute Nucleated RBC Nucleated RBC % Sodium Potassium Chloride Carbon Dioxide Anion Gap BUN Creatinine Estimated GFR (MDRD) Glucose Lactic Acid Calcium Total Bilirubin AST ALT Alkaline Phosphatase Total Protein Albumin Globulin Albumin/Globulin Ratio Lipase Urine Color YELLOW Urine Clarity CLEAR Urine pH 5.5 Ur Specific [place] 1.025 Urine Protein NEGATIVE Urine Glucose (UA) NEGATIVE Urine Ketones NEGATIVE Urine Occult Blood NEGATIVE Urine Nitrite NEGATIVE Urine Bilirubin NEGATIVE Urine Urobilinogen 0.2 (NORMAL) Ur Leukocyte Esterase NEGATIVE Ur Microscopic Review NOT INDICATED Urine HCG, Qual NEGATIVE PD MEDICAL DECISION MAKING - ED course ED course: 40yF p/w symptoms c/w COVID-19 over the past two days and sick contacts in her household, all of which are unvaccinated. Patient visibly reassured during history, counseling session, and upon physical exam, with improvement in HR to high 90s and RR 14 on exam. symptomatic care and return precautions discussed with patient. will refill her steroids, albuterol, and tesselon perles at her request. Departure - Departure Disposition: 01 Home, Self Care Clinical Impression: Cough, Shortness of breath Condition: Good Instructions: COVID-19 [facility], COVID-19 [facility] Department Statement Prescriptions: Albuterol Sulf 5 mg IH Q4H PRN #10 ml PRN Reason: Shortness Of Air/Wheezing predniSONE [Prednisone 21-TAB dose pack] 60 mg PO QDAC 6 Days #21 tab Benzonatate [Tessalon] 100 mg PO TID #30 Comments: You were seen in the ED for evaluation of symptoms of COVID-19. Please stay home, get lots of rest, hydrate, and walk around a couple of times a day to get your blood moving. Sleep on your stomach and buy a humidifier to place by the bedside at night. Return to the ED if you are coughing up blood, have worsening shortness of breath or any other new or worsening symptoms that concern you. Please follow up with your primary doctor by telehealth appointment.
[2021-05-12 00:14] LABS: CLARITY,URINE CLEAR (CLEAR)
--- NOTE | 2021-05-12 00:35 | XRAY Report ---
PROCEDURE: Chest 1 View X-Ray INDICATIONS: covid-19 TECHNIQUE: One view of the chest was acquired. COMPARISON: 04/09/2021 FINDINGS: Surgical changes and devices: None. Lungs and pleura: No pleural effusions or pneumothorax. Lungs are clear. Mediastinum: Mediastinal contours appear normal. Heart size is normal. Bones and chest wall: No suspicious bony lesions. Overlying soft tissues appear unremarkable. IMPRESSION: Unremarkable portable chest. Stable from prior. Reviewed by: Danilo Vanegas MD on 05/11/2021 11:34 PM [facility] Approved by: Danilo Vanegas MD on 05/11/2021 11:34 PM [facility] Station ID: [id number]
[2021-05-12 01:09] VITALS: BP 133/80
== END 2021-05-12 01:31 | disposition home or self-care (01) ==
LOC: ED 23:13
DX: U07.1 COVID-19 (principal); F17.200 Nicotine dependence, unspecified, uncomplicated
CPT/HCPCS: 36415; 71045; 80053; 81003; 81025; 83605; 83690; 85025; 87040; 87635; 96374; 99282; 99284; A9270; J2060; 0202U; 81001

== ENCOUNTER 2021-07-26 12:10 | Emergency (ER) | payer MEDICAID ==
[2021-07-26 12:35] LABS: BILIRUBIN,URINE NEGATIVE (NEGATIVE); GLUCOSE, URINE (UA) NEGATIVE (NEGATIVE); KETONES,URINE (UA) NEGATIVE (NEGATIVE); LEUKOCYTE ESTERASE, URINE NEGATIVE (NEGATIVE); NITRITE,URINE NEGATIVE (NEGATIVE); OCCULT BLOOD,URINE NEGATIVE (NEGATIVE); PROTEIN,URINE NEGATIVE (NEGATIVE); UROBILINOGEN,URINE 0.2 (NORMAL) E.U./dL (NORMAL)
[2021-07-26 12:36] LABS: CLARITY,URINE CLEAR (CLEAR)
[2021-07-26 12:48] LABS: BASOPHILS # (AUTO) 0.1 10^3/uL (0.0-0.1); BASOPHILS % (AUTO) 1.4 %; EOSINOPHILS # (AUTO) 0.4 10^3/uL (0.0-0.7); EOSINOPHILS % (AUTO) 5.5 %; HCT - HEMATOCRIT 40.8 % (37.0-47.0); HGB - HEMOGLOBIN 13.2 g/dL (12.0-16.0); LYMPHOCYTES # (AUTO) 2.4 10^3/uL (1.5-3.5); LYMPHOCYTES % (AUTO) 37.8 %; MEAN CORPUSCULAR HEMOGLOBIN 26.2 pg (27.0-31.0); MEAN CORPUSCULAR HGB CONC 32.4 g/dL (32.0-36.0); MEAN CORPUSCULAR VOLUME 81.1 fL (81.0-99.0); MEAN PLATELET VOLUME 9.5 fL (7.9-10.8); MONOCYTES # (AUTO) 0.6 10^3/uL (0.0-1.0); MONOCYTES % (AUTO) 8.6 %; NEUTROPHILS % (AUTO) 46.5 %; PLT - PLATELET COUNT 375 10^3/uL (130-450); RED BLOOD COUNT 5.03 10^6/uL (4.20-5.40); RED CELL DISTRIBUTION WIDTH 12.6 % (12.0-15.0); WHITE BLOOD COUNT 6.4 x10^3/uL (4.8-10.8)
[2021-07-26 12:58] LABS: ALBUMIN 4.1 g/dL (3.2-5.5); ALBUMIN/GLOBULIN RATIO 1.1 (1.0-2.2); BILIRUBIN,TOTAL 0.3 mg/dL (0.2-1.0); CALCIUM 8.9 mg/dL (8.5-10.3); CREATININE 0.7 mg/dL (0.4-1.0); POTASSIUM 4.2 mmol/L (3.5-5.0); TOTAL PROTEIN 7.9 g/dL (6.7-8.2)
[2021-07-26] MEDS ORDERED: ONDANSETRON 4 MG/2 ML VIAL IVP STA (13:31)
[2021-07-26] MEDS ORDERED: KETOROLAC 15 MG/ML VIAL IVP STA (13:31)
[2021-07-26] MEDS ORDERED: HYDROmorphone 1 MG/ML CARPUJECT IVP STA ×2 (13:31→14:38)
--- NOTE | 2021-07-26 13:32 | ED Physician Documentation ---
PD HPI ABD PAIN - Stated complaint Stated Complaint: ABD PX - Chief complaint Chief Complaint: Abd Pain - History obtained from History obtained from: Patient - Additional information Additional information: 41-year-old woman with history of hysterectomy but not an oophorectomy, kidney stones and ovarian cyst presents with mild left lower quadrant pain that has been going on for couple of weeks, "pinching" but mild which has been severe over the last 3 hours or so. No urinary symptoms. No fevers. 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 : Kidney stones HEENT: Chronic vision loss, Other Psych: Depression, Anxiety, Claustrophobia Musculoskeletal: Chronic back pain, Other Derm: None - Past Surgical History Past Surgical History: Yes General: Cholecystectomy, EGD Ortho: Arthroscopic surgery, Other /COIL WINDER REPAIR: Tubal ligation, Hysterectomy - Present Medications Home Medications: Ambulatory Orders Medication Instructions Recorded Confirmed Citalopram [CeleXA] 40 mg PO DAILY 03/24/14 07/26/21 Levothyroxine [Synthroid] 225 mcg PO DAILY 03/24/14 07/26/21 Acetaminophen [Tylenol] 650 mg PO Q6H PRN 06/12/20 07/26/21 Ibuprofen [Motrin] 600 mg PO Q6H PRN 06/12/20 07/26/21 Albuterol Sulf [Ventolin Hfa 1 - 2 puffs INH Q4HR PRN #1 inhaler 04/09/21 07/26/21 Inhaler] Cetirizine HCl/Pseudoephedrine 1 each PO DAILY 07/26/21 07/26/21 [Zyrtec-D Tablet] Fluticasone 110 Mcg [Flovent] 2 puffs IH BID 07/26/21 07/26/21 Ibuprofen [Motrin] 800 mg PO Q8H PRN #30 tablet 07/26/21 Ipratropium/Albuterol [Combivent 1 puffs IH QID 07/26/21 07/26/21 Respimat] Ondansetron Odt [Zofran] 4 mg TL Q6H PRN #10 tablet 07/26/21 Oxycodone HCl/Acetaminophen 1 - 2 each PO Q6H PRN #14 tablet 07/26/21 [Percocet 5-325 mg Tablet] - Allergies Allergies/Adverse Reactions: Allergies Allergy/AdvReac Type Severity Reaction Status Date / Time bupropion [From Wellbutrin] Allergy facial Verified 07/26/21 12:14 numbess, neurological problems diclofenac AdvReac Severe Nausea Verified 07/26/21 12:14 erythromycin base AdvReac Severe Nausea Verified 07/26/21 12:14 - Social History Does the pt smoke?: No Smoking Status: Former smoker Does the pt drink ETOH?: No Does the pt have substance abuse?: Yes Substance Use and Type: Marijuana - Immunizations Immunizations are current?: No Immunizations: Other immun not current - POLST Patient has POLST: No PD ED PE NORMAL - Vitals Vital signs reviewed: Yes - General General: Alert and oriented X 3, Other (She appears uncomfortable and in pain clutching her left pelvic area. Thanks) - Cardiac Cardiac: RRR, No murmur - Respiratory Respiratory: No respiratory distress, Clear bilaterally - Abdomen Abdomen: Other (Mild left pelvic tenderness, no CVA tenderness. No surgical signs.) - Neuro Neuro: Alert and oriented X 3, Normal speech Results - Vitals Vitals: Vital Signs - 24 hr 07/26/21 07/26/21 07/26/21 12:14 12:19 14:46 Temperature 36.4 C L 36.5 C 37 C Heart Rate 72 72 57 L Respiratory 20 20 16 Rate Blood Pressure 138/65 H 138/65 H 110/67 O2 Saturation 98 98 97 Oxygen O2 Source Room air - Labs Labs: Laboratory Tests 07/26/21 07/26/21 07/26/21 12:31 12:39 12:39 WBC 6.4 RBC 5.03 Hgb 13.2 Hct 40.8 MCV 81.1 MCH 26.2 L MCHC 32.4 RDW 12.6 Plt Count 375 MPV 9.5 Neut # (Auto) 3.0 Lymph # (Auto) 2.4 [place] # (Auto) 0.6 Eos # (Auto) 0.4 Baso # (Auto) 0.1 Absolute Nucleated RBC 0.00 Nucleated RBC % 0.0 Sodium 135 Potassium 4.2 Chloride 102 Carbon Dioxide 24 Anion Gap 9.0 BUN 16 Creatinine 0.7 Estimated GFR (MDRD) 91 Glucose 101 H Calcium 8.9 Total Bilirubin 0.3 AST 19 ALT 25 Alkaline Phosphatase 80 Total Protein 7.9 Albumin 4.1 Globulin 3.8 Albumin/Globulin Ratio 1.1 Lipase 32 Urine Color YELLOW Urine Clarity CLEAR Urine pH 6.0 Ur Specific [place] 1.020 Urine Protein NEGATIVE Urine Glucose (UA) NEGATIVE Urine Ketones NEGATIVE Urine Occult Blood NEGATIVE Urine Nitrite NEGATIVE Urine Bilirubin NEGATIVE Urine Urobilinogen 0.2 (NORMAL) Ur Leukocyte Esterase NEGATIVE Ur Microscopic Review NOT INDICATED Urine Culture Comments NOT INDICATED - Rads (name of study) Pelvic sono demonstrates no torsion, bilateral follicles Radiology: EMP read contemporaneously PD MEDICAL DECISION MAKING - ED course ED course: 41-year-old woman with left pelvic pain. She has a history of ovarian cyst and this is similar to that for her. She also has a history of renal colic but this is different and there is no hematuria. Ultrasound and labs unremarkable. Could have been ruptured cyst or nonspecific pelvic pain. No concern for PID or given hysterectomy status. Departure - Departure Disposition: 01 Home, Self Care Clinical Impression: Pelvic pain in female Condition: Good Record reviewed to determine appropriate education?: Yes Instructions: ED Pelvic Pain [facility] Prescriptions: Ibuprofen [Motrin] 800 mg PO Q8H PRN #30 tablet PRN Reason: PAIN &/OR FEVER Oxycodone HCl/Acetaminophen [Percocet 5-325 mg Tablet] 1 - 2 each PO Q6H PRN #14 tablet PRN Reason: pain Ondansetron Odt [Zofran] 4 mg TL Q6H PRN #10 tablet PRN Reason: Nausea / Vomiting Comments: I sent prescriptions to [facility] in [place]. You are seen today for pelvic pain, could have been a ruptured ovarian cyst, no evidence of ovarian torsion where the ovary twists. Urinalysis and labs are unremarkable. Return if worsening. Call your doctor to arrange a follow-up appointment, make the next available appointment. In the interim, return anytime if worse or if new symptoms develop. I am prescribing a short course of narcotic pain medication for you. These are potentially dangerous and addictive medications that should be used carefully. These medications may constipate you. Take an [id number] stool softener (docusate) twice daily with plenty of water while taking these medications. If you go 24 hours without a bowel movement, take [id number] miralax, per package instructions. Do not drink or drive while taking these medications. If you received narcotic or sedating medications while in the emergency department, do not drive for 24 hours. Store this medication in a safe, secure place and out of reach of children. It is a violation of federal law to give or sell this medication to another person or to use in a manner other than prescribed. The ED will not refill narcotic prescriptions, including prescriptions lost or stolen. To dispose of unwanted medications: 1. [facility] at [address] in [place] has a medication drop box. They accept prescription medications (in pill form) Friday through Friday 9:00 a.m. to 5:00 p.m. 2. The [facility] accepts prescription medications (in pill form only) for disposal year round. Call for more information. 3. Contact the [facility] for the next [facility] sponsored prescription drug collection event. , [phone], or [phone]; Note that many narcotic pain relievers also contain Tylenol/acetaminophen. Please ensure that your total dose of acetaminophen from all sources does not exceed 3 g (3000 mg) per day. Discharge Date/Time: 07/26/21 15:05
[2021-07-26] MEDS ORDERED: METOCLOPRAMIDE 10 MG/2 ML VIAL IVP STA (14:38)
[2021-07-26 14:46] VITALS: BP 110/67
--- NOTE | 2021-07-26 15:49 | Ultrasound Report ---
PROCEDURE: Pelvic w/Transvag+Doppler Comp INDICATIONS: L pelvic pain TECHNIQUE: Real-time scanning was performed of the pelvic organs, with image documentation. Additional endovagi nal scanning was necessary due to incomplete visualization of the adnexal and endometrial structures by transabdominal scanning. Doppler interrogation was performed of the ovaries bilaterally. COMPARISON: 08/03/2020. FINDINGS: No pathologic free abdominal or pelvic fluid. Uterus: Uterus is surgically absent. Ovaries: Right ovary measures 2.9 x 2.0 x 1.4 cm with total volume of 4.1 cc. There is a 0.8 0.8 x 0 .7 cm dominant follicle in the right ovary. Left ovary measures 2.7 x 1.5 x 1.5 cm with total 3.1 cc. 1.0 x 0.5 x 0.7 and 0.9 x 0.9 x 1.2 cm follicles noted in the left ovary. Normal appearing arterial and venous waveforms are confirmed to each ovary.] Other: No free pelvic fluid. IMPRESSION: 1. No evidence of ovarian torsion. Please note ultrasound cannot exclude intermittent torsion. 2. Bilateral ovarian functional follicles. Reviewed by: Aaliyah Baez MD, PhD on 07/26/2021 3:48 PM PDT Approved by: Aaliyah Baez MD, PhD on 07/26/2021 3:48 PM PDT Station ID: [id number]
== END 2021-07-26 15:05 | disposition home or self-care (01) ==
LOC: ED 12:10
DX: R10.2 Pelvic and perineal pain (principal); Z87.891 Personal history of nicotine dependence
CPT/HCPCS: 36415; 76830; 76856; 80053; 81003; 83690; 85025; 93975; 96374; 96375; 96376; 99284; 99285; J1170; J2765; 81001; 87086

== ENCOUNTER 2021-08-08 09:18 | Outpatient (CLI) | payer MEDICAID ==
[2021-08-08 15:06] LABS: BASOPHILS # (AUTO) 0.1 10^3/uL (0.0-0.1); BASOPHILS % (AUTO) 1.3 %; EOSINOPHILS # (AUTO) 0.3 10^3/uL (0.0-0.7); EOSINOPHILS % (AUTO) 4.9 %; HCT - HEMATOCRIT 42.4 % (37.0-47.0); HGB - HEMOGLOBIN 13.2 g/dL (12.0-16.0); LYMPHOCYTES % (AUTO) 32.2 %; MEAN CORPUSCULAR HEMOGLOBIN 25.8 pg (27.0-31.0); MEAN CORPUSCULAR HGB CONC 31.1 g/dL (32.0-36.0); MEAN PLATELET VOLUME 10.3 fL (7.9-10.8); MONOCYTES # (AUTO) 0.7 10^3/uL (0.0-1.0); MONOCYTES % (AUTO) 10.3 %; NEUTROPHILS # (AUTO) 3.2 10^3/uL (1.5-6.6); PLT - PLATELET COUNT 386 10^3/uL (130-450); RED BLOOD COUNT 5.11 10^6/uL (4.20-5.40); RED CELL DISTRIBUTION WIDTH 12.3 % (12.0-15.0); WHITE BLOOD COUNT 6.3 x10^3/uL (4.8-10.8)
[2021-08-08 16:06] LABS: ALBUMIN 3.8 g/dL (3.2-5.5); ALBUMIN/GLOBULIN RATIO 1.2 (1.0-2.2); ALKALINE PHOSPHATASE 66 IU/L (42-121); ALT ALANINE AMINOTRANSFERASE 26 IU/L (10-60); AST ASPARTATE AMINOTRANSFERASE 23 IU/L (10-42); BILIRUBIN,TOTAL 0.5 mg/dL (0.2-1.0); BUN - BLOOD UREA NITROGEN 12 mg/dL (6-20); CALCIUM 9.3 mg/dL (8.5-10.3); CARBON DIOXIDE - CO2 27 mmol/L (21-32); CHLORIDE 102 mmol/L (101-111); CHOL/HDL RATIO 4.8 (<4.4); CHOLESTEROL 207 mg/dL; CREATININE 0.7 mg/dL (0.4-1.0); GFR - MDRD 91 (>89); GLUCOSE 99 mg/dL (70-100); HDL CHOLESTEROL 43 mg/dL; LDL CHOLESTEROL,CALCULATED 137 mg/dL; LDL/HDL RATIO 3.2 (<4.4); POTASSIUM 4.5 mmol/L (3.5-5.0); SODIUM 135 mmol/L (135-145); TRIGLYCERIDES 137 mg/dL; VLDL CHOLESTEROL 27 mg/dL
[2021-08-08 16:24] LABS: THYROID STIMULATING HORMONE 0.01 uIU/mL (0.34-5.60)
[2021-08-08 17:41] LABS: FREE T4 (FREE THYROXINE) 1.41 ng/dL (0.58-1.64)
== END 2021-08-08 09:19 | disposition home or self-care (01) ==
LOC: LAB.S 09:18
PROVIDERS: ATTEND Physician Assistant Medical
DX: E78.5 Hyperlipidemia, unspecified (principal); E55.9 Vitamin D deficiency, unspecified; E03.9 Hypothyroidism, unspecified; R10.2 Pelvic and perineal pain
CPT/HCPCS: 36415; 80053; 80061; 82306; 83721; 84439; 84443; 85025

== ENCOUNTER 2022-08-07 08:00 | Outpatient (CLI) | payer MEDICAID | END 2022-08-07 23:59 | disposition home or self-care (01) | LOC: LAB.S 08:00 | PROVIDERS: ATTEND Nurse Practitioner | DX: R07.0 Pain in throat (principal) | CPT/HCPCS: 87070 ==

== ENCOUNTER 2022-10-03 09:15 | Outpatient (CLI) | payer MEDICAID ==
[2022-10-03 11:53] LABS: BASOPHILS # (AUTO) 0.1 10^3/uL (0.0-0.1); BASOPHILS % (AUTO) 1.3 %; EOSINOPHILS # (AUTO) 0.5 10^3/uL (0.0-0.7); HCT - HEMATOCRIT 40.9 % (37.0-47.0); HGB - HEMOGLOBIN 12.6 g/dL (12.0-16.0); LYMPHOCYTES # (AUTO) 2.3 10^3/uL (1.5-3.5); LYMPHOCYTES % (AUTO) 33.7 %; MEAN CORPUSCULAR HEMOGLOBIN 25.4 pg (27.0-31.0); MEAN CORPUSCULAR HGB CONC 30.8 g/dL (32.0-36.0); MEAN CORPUSCULAR VOLUME 82.3 fL (81.0-99.0); MONOCYTES # (AUTO) 0.6 10^3/uL (0.0-1.0); MONOCYTES % (AUTO) 8.3 %; NEUTROPHILS # (AUTO) 3.3 10^3/uL (1.5-6.6); NEUTROPHILS % (AUTO) 48.6 %; PLT - PLATELET COUNT 368 10^3/uL (130-450); RED BLOOD COUNT 4.97 10^6/uL (4.20-5.40); WHITE BLOOD COUNT 6.8 x10^3/uL (4.8-10.8)
[2022-10-03 12:16] LABS: ALBUMIN 3.9 g/dL (3.2-5.5); ALKALINE PHOSPHATASE 85 IU/L (42-121); ALT ALANINE AMINOTRANSFERASE 23 IU/L (10-60); AST ASPARTATE AMINOTRANSFERASE 18 IU/L (10-42); BILIRUBIN,TOTAL 0.5 mg/dL (0.2-1.0); BUN - BLOOD UREA NITROGEN 12 mg/dL (6-20); CALCIUM 8.6 mg/dL (8.5-10.3); CARBON DIOXIDE - CO2 27 mmol/L (21-32); CHLORIDE 108 mmol/L (101-111); CHOL/HDL RATIO 4.8 (<4.4); CHOLESTEROL 200 mg/dL; CREATININE 0.8 mg/dL (0.4-1.0); GFR - MDRD 78 (>89); GLUCOSE 105 mg/dL (70-100); HDL CHOLESTEROL 42 mg/dL; LDL CHOLESTEROL,CALCULATED 138 mg/dL; LDL/HDL RATIO 3.3 (<4.4); POTASSIUM 4.1 mmol/L (3.5-5.0); SODIUM 139 mmol/L (135-145); TOTAL PROTEIN 7.7 g/dL (6.7-8.2); TRIGLYCERIDES 99 mg/dL; VLDL CHOLESTEROL 20 mg/dL
[2022-10-03 12:30] LABS: THYROID STIMULATING HORMONE < 0.08 uIU/mL (0.34-5.60)
[2022-10-03 14:17] LABS: FREE T4 (FREE THYROXINE) 1.64 ng/dL (0.58-1.64)
== END 2022-10-03 09:16 | disposition home or self-care (01) ==
LOC: LAB.N 09:15
PROVIDERS: ATTEND Physician Assistant Medical
DX: J44.1 Chronic obstructive pulmonary disease with (acute) exacerbation (principal); Z79.899 Other long term (current) drug therapy; E78.5 Hyperlipidemia, unspecified; E03.9 Hypothyroidism, unspecified
CPT/HCPCS: 36415; 80053; 80061; 83721; 84439; 84443; 85025

== ENCOUNTER 2022-12-11 09:40 | Outpatient (CLI) | payer MEDICAID ==
--- NOTE | 2022-12-11 10:28 | Sleep Patient Instructions ---
Sleep Center Visit Summary - Patient Visit Information Reason for Visit: Initial consult for evaluation of sleep disordered breathing and other sleep issues. - Patient Instructions Instructions Attached: Sleep Study, Sleep Clinic Visit, Sleep Study Home Monitor Additional Instructions: You will be completing a sleep study, either an in-lab polysomnography (PSG) or home sleep study (HST). You will follow-up in the sleep care office after the sleep study is completed to hear the results and talk about therapy, if needed. You will be called by our office staff to schedule this appointment, but you may contact us with any questions. - Clinic Information Contact: [facility] [address] [place] [address] [email or web address] T: [phone]
--- NOTE | 2022-12-11 10:30 | SLEEP CARE CONSULTATION ---
Information from patient questionnaire entered by Sintia De La O. I have reviewed and concur with the information entered by Sintia De La O. This document represents the service I personally performed and the decisions made by me, Diana Mcallister ARNP. History of Present Illness Service Date and Time: 12/11/2022 0940 Reason for Visit: New patient Accompanied by: Spouse Chief Complaint: reports: Insomnia, Unrefreshed sleep, Snoring, Observed pauses in breathing, Fatigue, Frequent awakenings at night Date of Onset: progressively worse for years Usual bedtime: 11-12 midnight Time it takes to fall asleep: 1-2 hours Snores at night: Yes Observed to quit breathing while asleep: Yes Sleeps alone due to snoring: No Number of times waking at night: 2-5 Reasons for waking at night: reports: Snoring, Gasping for air (coughing according to her; says gasping), Bathroom, Other (noise, unknown reason). denies: Choking Toss, Turn, or Twitch while sleeping: Yes Recalls having dreams: No (wakes up with night terrors but does not remember them) Usually gets out of bed at: [id number] Feels refreshed in the morning: No Morning headache: Yes (2-3 times a week; resolves after coffee) Sleepy or fatigued during the day: Yes Ever fallen asleep while driving: No Takes day naps: Yes (somtimes; 2-3 times a month) Dreams during day naps: No Prior sleep studies: No Additional HPI information: I had the pleasure of seeing JODI ESTRADA today regarding the possibility of her having a sleep disorder. Her current complaints are fatigue, frequent night awakenings, insomnia, observed pauses in breathing, snoring and unrefreshed sleep. She is accompanied by her spouse today. - Parasomnia Symptoms Ever been unable to move upon waking from sleep: No Walks in sleep: No (have in the past) Talks in sleep: Yes (a lot) Ever acted out dreams in sleep: Yes (flinging arms) Ever felt weak in the knees when startled or emotional: No Bothered by creepy, crawly, restless sensations in legs: Yes ("intense itching and burning", feet to calves) Problems with memory or concentration: Yes (sometimes short-term memory frequently) Subjective Initial [place] Sleepiness Scale score: 7 (12/11/2022) Past Medical History Past Medical History: reports: Hypothyroidism (Arlene's), Asthma, Depression, Mood disorder (schizoaffective disorder) Social History 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 Patient is and lives in [place]. Have you smoked in the past 12 months: Yes (vapes only) Cigarettes per day (20/pack): 20 Years of smokin (plus) Quit date: 2021 Smoking Pack Years: 20.0 Alcohol use: Yes Alcohol amount and frequency: 1-5 times a year Caffeine use: Yes Caffeine amount and frequency: 2 cups coffee daily Family History Family history of sleep disordered breathing: Yes Family Hx Sleep Apnea: Mother: Snoring, Grandparent: Snoring, Sleep apnea - Treated Allergies and Home Medications Known drug allergies: Yes (as listed) Drug allergies reviewed: Yes Home medication list reviewed: Yes Allergy and home medication list: Allergies bupropion [From Wellbutrin] Allergy (Verified 12/10/22 14:36) facial numbess, neurological problems diclofenac Adverse Reaction (Severe, Verified 12/10/22 14:36) Nausea severe vomiting erythromycin base Adverse Reaction (Severe, Verified 12/10/22 14:36) Nausea severe vomiting Medications: Levothyroxine 200 mcg daily Citalopram 40 mg daily equate Zyrtec daily Combivent inhaler Flovent inhaler Albuterol inhaler Review of Systems Weight gain over past 5 years: 25 Cardiovascular: denies: high blood pressure Respiratory: reports: shortness of breath, wheeze Gastrointestinal: denies: heartburn Urinary: reports: incontinence Neurological: reports: headaches, fainting or unconsciousness Psychiatric: reports: anxiety, depression, mood disorder, claustrophobia (mild) Ear/Nose/Throat: reports: wisdom teeth removed. denies: tonsillectomy Endocrine: reports: thyroid disease, sluggishness, too hot or cold. denies: excessive thirst Musculoskeletal: reports: joint pain, back pain, joint swelling, muscle pain or cramping Immunologic: reports: sneezing, rash, itching, allergies to food or environment Physical Exam Vital signs obtained and entered by: Diana Oseguera NP Blood Pressure: 114/70 Cuff size: wrist (right) Heart Rate: 68 O2 Saturation: 96 Height: 5 ft 11.5 in Weight: 228 lb 12.8 oz Body Mass Index: 31.4 BMI Classification: Obese Neck circumference: 15.75 (inches) Mouth and throat: narrow oropharynx Soft palate: long Hard palate: normal Uvula: normal Uvula visualization: 25% Mallampati Class III Tongue: enlarged in size with teeth perez on lateral edges Tonsils: 2+ Neck: normal w/o lymphadenopathy or thyromegaly Heart: regular rate and rhythm Lungs: wheeze Impression and Plan 1. Suspected Obstructive Sleep Apnea-Hypopnea Syndrome, as suggested by a history of loud and irregular snoring, observed cessation of breath while asleep, gasping or choking in sleep, morning headache, frequent awakening during the night, unrefreshed sleep, cognitive impairment, and excessive daytime sleepiness. Narrow oropharynx and obesity are common predisposing factors for obstructive sleep apnea-hypopnea syndrome. I recommend proceeding to polysomnography to confirm the diagnosis and to assess severity. If the patient has significant sleep disordered breathing, a manual CPAP titration study will also be performed to find the optimal treatment pressure. I informed the patient of what the sleep studies involve and after some discussion, obtained agreement to proceed. The pathophysiology of obstructive sleep apnea-hypopnea syndrome was discussed with the patient and health risks of cardiovascular and cerebrovascular disease if not treated. Risks of drowsy driving discussed in detail and patient advised to avoid long distance driving and to drum puller at the first sign of drowsiness. Patient agreed to plan. * Schedule polysomnography. * Avoid long distance driving or driving when feeling sleepy. * Avoid alcohol, sedative and muscle relaxant around bedtime. * Attempt to lose weight. * Review instructions provided by trained office staff on how to prepare for the sleep study. * Return for follow-up after sleep study completed. Counseling Topics: Weight loss health impact Visit Type: In Office Time Spent with Patient (minutes): 38 Provider Statement: I spent 100% of the Face to Face Visit with the patient with greater than 50% spent counseling the patient and coordination of care.
[2022-12-11 10:33] VITALS: BP 114/70; O2SAT 96
== END 2022-12-11 09:41 | disposition home or self-care (01) ==
LOC: SC 09:40
PROVIDERS: ATTEND Nurse Practitioner Family
DX: R06.83 Snoring (principal); R06.81 Apnea, not elsewhere classified; R09.89 Other specified symptoms and signs involving the circulatory and respiratory systems; R51.9 Headache, unspecified; R09.02 Hypoxemia
CPT/HCPCS: 99203; 99212

== ENCOUNTER 2023-01-31 12:47 | Outpatient (CLI) | payer MEDICAID ==
--- NOTE | 2023-01-31 12:12 | SLEEP CARE CONSULTATION ---
Information from patient questionnaire entered by Sintia De La O. I have reviewed and concur with the information entered by Sintia De La O. This document represents the service I personally performed and the decisions made by , Diana Mcallister ARNP. History of Present Illness Service Date and Time: 01/31/2023 1140 Initial [place] Sleepiness Scale score: 7 (12/11/2022) Current [place] Sleepiness Scale score: 17 (01/31/23) Additional HPI information: JODI ESTRADA returns via video telehealth visit for follow up and results of the recently performed polysomnography. The sleep study showed mild obstructive sleep apnea with an average AHI of 8.5 and suad oxygen saturation of 84%. I explained the pathophysiology behind obstructive sleep apnea. We then spent quite a bit of time discussing different treatment options. For mild obstru ctive sleep apnea, surgery and oral appliance are alternatives to nasal CPAP therapy but in moderate or severe cases, nasal CPAP is the most effective and reliable treatment. Because apnea is primarily in supine position, then positional management therapy could be effective. Methods discussed such as positioning with pillows, using a T-shirt with tennis balls in the back or commercial products that have a pillow format on back to prevent supine sleep. I reviewed the impact of weight changes on sleep apnea and strongly recommended losing weight. Patient does not drink alcohol. Patient was cautioned about risks of drowsy driving until sleepiness symptoms resolve. Patient denies drowsy driving. Sleep Study - Results Type of Sleep Study: Polysomnography (completed 01/07/23) Prior sleep studies: No Polysomnography/Home Sleep Study results: IMPRESSION: The quality of the study is good. The patient had normal sleep efficiency. Despite moderate sleep fragmentation,, the sleep architecture was also normal. Respiratory monitoring showed mild obstructive sleep apnea-hypopnea (AHI = 8.5) associated with frequent arousals, oxyhemoglobin desaturation and mild hypoxia (suad oxygen saturation of 84%). The respiratory events occurred almost exclusively during supine sleep (supine AHI = 14.4; non-supine = 3.41). Snore was loud in intensity. There was no significant periodic leg movement of sleep. Cardiac rhythm was normal sinus rhythm without significant arrhythmia. No abnormal behavior (parasomnia) observed during the night. Allergies and Home Medications Known drug allergies: Yes (as listed) Drug allergies reviewed: Yes Home medication list reviewed: Yes (no changes) Allergy and home medication list: Allergies bupropion [From Wellbutrin] Allergy (Verified 01/30/23 13:44) facial numbess, neurological problems diclofenac Adverse Reaction (Severe, Verified 01/30/23 13:44) Nausea severe vomiting erythromycin base Adverse Reaction (Severe, Verified 01/30/23 13:44) Nausea severe vomiting Review of Systems Review of systems same as previous: Yes (NO CHANGE) Physical Exam Vital signs obtained and entered by: SINTIA Salinas MA Height: 6 ft 1 in (PER PT) Weight: 225 lb (PER PT) Body Mass Index: 29.7 BMI Classification: Overweight Impression and Plan 1. Obstructive Sleep Apnea-Hypopnea Syndrome, mild, with lowest oxygen saturatio n of 84%. Obviously this is the cause of the patients symptoms of unrefreshed sleep, and excessive daytime sleepiness. Positive pressure therapy could benefit asthma, depression and mood disorder]. As mentioned above, the patient chose an oral appliance to treat their apnea. A follow up will be made about a month after she obtains her oral appliance to see if appliance has reduced symptoms. If so, another polysomnography will be ordered with use of the oral appliance to check efficacy in reducing apnea. Until patient is able to use the oral appliance, positional therapy is advised to avoid supine sleep with pillow positioning or one of the commercial products because apnea is more severe supine. 2. Hypoxemia, mild, with a suad oxygen saturation of 84% and 11.8 minutes spent under 90%. Her baseline oxygen saturation was normal with an average oxygen saturation of 91%. 3. Overweight, unspecified. Currently patients BMI is 29.7. Obesity increases the risk of apnea, CPAP pressure requirements and overall health risks especially cardiovascular and diabetes. Thus patient is advised to lose weight. * Oral appliance * Attempt to lose weight. * Avoid supine sleep until using oral appliance * The patient is again cautioned about driving until sleepiness completely resolves. * Return one month after oral appliance obtained. I will assess response to therapy at that time. Counseling Topics: Weight loss health impact Visit Type: Telehealth Video Video Type: Doximity Patient Location: Work Location of Provider: Office Patient agrees and consents to this telehealth visit type: Yes Patient agrees to have their insurance billed: Yes Time Spent with Patient (minutes): 15 Provider Statement: I spent 100% of the Telehealth Video Call with the patient with greater than 50% spent counseling the patient and coordination of care.
== END 2023-01-31 12:48 | disposition home or self-care (01) ==
LOC: SC 12:47
PROVIDERS: ATTEND Nurse Practitioner Family
DX: G47.33 Obstructive sleep apnea (adult) (pediatric) (principal); R09.02 Hypoxemia; E66.3 Overweight; Z68.29 Body mass index [BMI] 29.0-29.9, adult

== ENCOUNTER 2023-04-27 22:23 | Emergency (ER) | payer MEDICAID ==
[2023-04-27] MEDS ORDERED: SODIUM CHLORIDE 0.9% 1,000 ML IV STA (23:07)
[2023-04-27] MEDS ORDERED: ONDANSETRON 4 MG/2 ML VIAL IVP STA (23:07)
[2023-04-27] MEDS ORDERED: KETOROLAC 15 MG/ML VIAL IVP STA (23:07)
[2023-04-27 23:18] LABS: BASOPHILS # (AUTO) 0.2 10^3/uL (0.0-0.1); BASOPHILS % (AUTO) 1.8 %; EOSINOPHILS # (AUTO) 0.8 10^3/uL (0.0-0.7); EOSINOPHILS % (AUTO) 7.8 %; HCT - HEMATOCRIT 40.3 % (37.0-47.0); HGB - HEMOGLOBIN 12.7 g/dL (12.0-16.0); LYMPHOCYTES # (AUTO) 3.7 10^3/uL (1.5-3.5); LYMPHOCYTES % (AUTO) 38.9 %; MEAN CORPUSCULAR HEMOGLOBIN 25.9 pg (27.0-31.0); MEAN CORPUSCULAR HGB CONC 31.5 g/dL (32.0-36.0); MEAN CORPUSCULAR VOLUME 82.2 fL (81.0-99.0); MEAN PLATELET VOLUME 9.5 fL (7.9-10.8); MONOCYTES # (AUTO) 0.8 10^3/uL (0.0-1.0); MONOCYTES % (AUTO) 7.9 %; NEUTROPHILS # (AUTO) 4.2 10^3/uL (1.5-6.6); NEUTROPHILS % (AUTO) 43.4 %; PLT - PLATELET COUNT 402 10^3/uL (130-450); RED CELL DISTRIBUTION WIDTH 12.8 % (12.0-15.0); WHITE BLOOD COUNT 9.6 x10^3/uL (4.8-10.8)
[2023-04-27 23:25] LABS: BILIRUBIN,URINE NEGATIVE (NEGATIVE); GLUCOSE, URINE (UA) NEGATIVE (NEGATIVE); KETONES,URINE (UA) NEGATIVE (NEGATIVE); LEUKOCYTE ESTERASE, URINE NEGATIVE (NEGATIVE); NITRITE,URINE NEGATIVE (NEGATIVE); OCCULT BLOOD,URINE TRACE-INTA (NEGATIVE); PH,URINE 5.5 PH (5.0-7.5); PROTEIN,URINE NEGATIVE (NEGATIVE); UROBILINOGEN,URINE 0.2 (NORMAL) E.U./dL (NORMAL)
[2023-04-27 23:35] LABS: ALBUMIN 4.3 g/dL (3.2-5.5); ALBUMIN/GLOBULIN RATIO 1.4 (1.0-2.2); BILIRUBIN,TOTAL 0.2 mg/dL (0.2-1.0); CALCIUM 9.2 mg/dL (8.5-10.3); CREATININE 0.8 mg/dL (0.6-1.3); POTASSIUM 4.1 mmol/L (3.5-4.5); TOTAL PROTEIN 7.4 g/dL (6.4-8.9)
[2023-04-27] MEDS ORDERED: MORPHINE 2 MG/ML CARPUJECT IVP STA (23:35)
--- NOTE | 2023-04-28 00:05 | ED Physician Documentation ---
PD HPI FEMALE - Stated complaint Stated Complaint: LT BACK PX/ - Chief complaint Chief Complaint: Abd Pain - History obtained from History obtained from: Patient, Family - Additional information Additional information: 42-year-old female with previous history of kidney stones presents by private vehicle from home for sharp left-sided flank pain that does not radiate. Associated urinary frequency. Patient states that this feels similar to previous kidney stones. She states that in the past she has been able to take Pyridium which helps her symptoms, but she was in too much pain to control at home so she came to the emergency department. Denies nausea or vomiting.Has seen urology in the past for kidney stones, and states that she was told she makes uric acid crystals, but has not had a kidney stone in several years. Review of Systems Constitutional: denies: Fever, Chills GI: denies: Abdominal Pain, Nausea, Vomiting : reports: Frequency. denies: Dysuria, Hesitancy, Unable to Void Musculoskeletal: reports: Back pain. 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: Ovarian cysts : Kidney stones HEENT: Chronic vision loss, Other Psych: Depression, Anxiety, Claustrophobia Musculoskeletal: Chronic back pain, Other Derm: None - Past Surgical History Past Surgical History: Yes General: Cholecystectomy, EGD Ortho: Arthroscopic surgery, Other /LUNCHROOM OPERATOR: Tubal ligation, Hysterectomy - Present Medications Home Medications: Ambulatory Orders Medication Instructions Recorded Confirmed Citalopram [CeleXA] 40 mg PO DAILY 03/24/14 04/27/23 Levothyroxine [Synthroid] 225 mcg PO DAILY 03/24/14 04/27/23 Acetaminophen [Tylenol] 650 mg PO Q6H PRN 06/12/20 04/27/23 Albuterol Sulf [Ventolin Hfa 1 - 2 puffs INH Q4HR PRN #1 inhaler 04/09/21 04/27/23 Inhaler] Cetirizine HCl/Pseudoephedrine 1 each PO DAILY 07/26/21 04/27/23 [Zyrtec-D Tablet] Fluticasone 110 Mcg [Flovent] 2 puffs IH BID 07/26/21 04/27/23 Ipratropium/Albuterol [Combivent 1 puffs IH QID 07/26/21 04/27/23 Respimat] HYDROcod/ACETAM 5/325 [Cardinal 5/325] 1 - 2 tab PO Q6H PRN #8 tablet 04/28/23 Tamsulosin [Flomax] 0.4 mg PO DAILY #30 cap 04/28/23 - Allergies Allergies/Adverse Reactions: Allergies Allergy/AdvReac Type Severity Reaction Status Date / Time bupropion [From Wellbutrin] Allergy facial Verified 04/27/23 23:03 numbess, neurological problems diclofenac AdvReac Severe Nausea Verified 04/27/23 23:03 erythromycin base AdvReac Severe Nausea Verified 04/27/23 23:03 - Social History Does the pt smoke?: No Smoking Status: Never smoker Does the pt drink ETOH?: No Does the pt have substance abuse?: Yes - Immunizations Immunizations are current?: No Immunizations: Other immun not current - POLST Patient has POLST: No PD ED PE NORMAL - Vitals Vital signs reviewed: Yes - General General: Alert and oriented X 3, Well developed/nourished, Other (In pain, uncomfortable) - Cardiac Cardiac: RRR, Strong equal pulses - Respiratory Respiratory: No respiratory distress, Clear bilaterally - Abdomen Abdomen: Soft, Non tender, Non distended - Back Back: No spinal TTP, Other (Left flank tenderness to percussion) - Derm Derm: Normal color, Warm and dry, No rash - Extremities Extremities: No deformity, No tenderness to palpate, Normal ROM s pain - Neuro Neuro: Alert and oriented X 3, 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, No motor deficit, Normal speech - Psych Psych: Normal mood, Normal affect Results - Vitals Vitals: Vital Signs - 24 hr 04/27/23 04/27/23 04/28/23 22:55 23:40 00:05 Temperature 36.9 C Heart Rate 75 71 70 Respiratory 16 20 16 Rate Blood Pressure 143/65 H 148/69 H 147/82 H O2 Saturation 98 96 98 04/28/23 04/28/23 04/28/23 00:21 00:47 01:00 Temperature Heart Rate 67 69 63 Respiratory 18 18 16 Rate Blood Pressure 147/82 H 131/63 H 123/74 O2 Saturation 99 96 96 04/28/23 04/28/23 04/28/23 01:17 01:29 02:00 Temperature 36.2 C L 36.4 C L Heart Rate 66 61 65 Respiratory 18 18 16 Rate Blood Pressure 123/74 123/74 116/62 O2 Saturation 95 95 100 Oxygen O2 Source Room air - Labs Labs: Laboratory Tests 04/27/23 04/27/23 04/27/23 23:12 23:12 23:19 WBC 9.6 RBC 4.90 Hgb 12.7 Hct 40.3 MCV 82.2 MCH 25.9 L MCHC 31.5 L RDW 12.8 Plt Count 402 MPV 9.5 Neut # (Auto) 4.2 Lymph # (Auto) 3.7 H [place] # (Auto) 0.8 Eos # (Auto) 0.8 H Baso # (Auto) 0.2 H Absolute Nucleated RBC 0.00 Nucleated RBC % 0.0 Sodium 137 Potassium 4.1 Chloride 103 Carbon Dioxide 24 Anion Gap 10.0 BUN 19 Creatinine 0.8 Estimated GFR (MDRD) 78 L Glucose 98 Calcium 9.2 Total Bilirubin 0.2 AST 19 ALT 24 Alkaline Phosphatase 99 Total Protein 7.4 Albumin 4.3 Globulin 3.1 Albumin/Globulin Ratio 1.4 Lipase 37 Urine Color YELLOW Urine Clarity CLEAR Urine pH 5.5 Ur Specific [place] >=1.030 H Urine Protein NEGATIVE Urine Glucose (UA) NEGATIVE Urine Ketones NEGATIVE Urine Occult Blood TRACE-INTA Urine Nitrite NEGATIVE Urine Bilirubin NEGATIVE Urine Urobilinogen 0.2 (NORMAL) Ur Leukocyte Esterase NEGATIVE Ur Microscopic Review NOT INDICATED Urine Culture Comments NOT INDICATED PD Medical Decision Making - ED course Complexity details: reviewed results, re-evaluated patient, considered differential, d/w patient ED course: Patient with history of kidney stones presenting with severe left-sided flank pain. Since has been several years since patient's last stone will order labs and CT imaging. Pain medications and nausea medications ordered. Patient continues to report nausea and pain after Toradol and Zofran, additional Zofran and morphine ordered for administration. Laboratory work is reviewed, unremarkable, no leukocytosis, normal kidney function, no evidence of hematuria or urinary tract infection. Pending CT imaging. CT imaging negative for acute findings, no explanation for patient's flank pain. Patient reassessed, she states she is still feeling uncomfortable and like she has to use the restroom frequently but is unable to completely void her bladder. I counseled patient of lab and imaging findings at bedside, I do not have an explanation for patient's symptoms in the setting of negative workup. I offered pain medications and Flomax to see if this alleviates patient's symptoms at home. I highly recommended that the patient call her urologist for follow-up appointment. CardinalStef clairemax sent to pharmacy of choice. Departure - Departure Disposition: Home, Self Care Clinical Impression: Dysuria, Flank pain Condition: Stable Instructions: ED Dysuria Uncertain Cause Prescriptions: Tamsulosin [Flomax] 0.4 mg PO DAILY #30 cap HYDROcod/ACETAM 5/325 [Cardinal 5/325] 1 - 2 tab PO Q6H PRN #8 tablet PRN Reason: Pain Forms: PCP List Discharge Date/Time: 04/28/23 02:05
[2023-04-28 00:12] LABS: CLARITY,URINE CLEAR (CLEAR)
[2023-04-28] MEDS ORDERED: ONDANSETRON 4 MG/2 ML VIAL ONE (00:19)
[2023-04-28] MEDS ORDERED: ONDANSETRON 4 MG/2 ML VIAL IVP STA (00:28)
[2023-04-28] MEDS ORDERED: MORPHINE 2 MG/ML CARPUJECT IVP STA (01:09)
--- NOTE | 2023-04-28 01:22 | CT Report ---
PROCEDURE: Abdomen/Pelvis WO INDICATIONS: L FLANK PAIN, POSS STONE TECHNIQUE: A CT scan of the abdomen and pelvis was performed without the use of intravenous contrast. Images we re recorded and evaluated at appropriate window settings. Reformats: coronal and sagittal. For radiat ion dose reduction, the following was used: automated exposure control, adjustment of mA and/or kV ac cording to patient size. COMPARISON: CT abdomen pelvis 02/13/2021. FINDINGS: Image quality: Excellent. Lung bases and heart: Unremarkable. Liver: No contour-deforming mass. Gallbladder and biliary tree: Absent. Spleen: No splenomegaly. Pancreas: No pancreatic ductal dilation. Adrenals: Left adrenal adenoma measuring 2.3 cm, not significantly changed. Kidneys and ureters: No hydronephrosis. No kidney stones. No renal cystic lesion which requires follo w up. No solid mass. Bowel and peritoneum: No bowel distension. No pathologic free fluid. Normal appendix. Lymph nodes: No central or retroperitoneal adenopathy. Vessels: No infrarenal aortic aneurysm. PELVIS Reproductive organs: Uterus is absent. Bladder: No stones. Pelvic lymph nodes: No pelvic adenopathy by size criteria. Bones: No aggressive osseous abnormality. Other: No significant ventral or inguinal hernia. IMPRESSION: 1. No kidney stones. No hydronephrosis. 2. Benign left adrenal adenoma is not significantly changed. 3. Normal appendix. No free fluid. Reviewed by: Gopi Sanders MD on 04/28/2023 1:21 AM [facility] Approved by: Gopi Sanders MD on 04/28/2023 1:21 AM [facility] Station ID: [id number]
[2023-04-28 02:16] VITALS: BP 116/62; O2SAT 100
== END 2023-04-28 02:05 | disposition home or self-care (01) ==
LOC: ED 22:23
DX: R10.12 Left upper quadrant pain (principal); R30.0 Dysuria; Z87.442 Personal history of urinary calculi
CPT/HCPCS: 36415; 80053; 81001; 81003; 83690; 85025; 87086; 96374; 96375; 96376; 99284

== ENCOUNTER 2023-06-26 17:21 | Emergency (ER) | payer MEDICAID ==
[2023-06-26 18:28] LABS: BASOPHILS # (AUTO) 0.1 10^3/uL (0.0-0.1); BASOPHILS % (AUTO) 1.2 %; EOSINOPHILS # (AUTO) 0.4 10^3/uL (0.0-0.7); EOSINOPHILS % (AUTO) 4.2 %; HCT - HEMATOCRIT 41.9 % (37.0-47.0); LYMPHOCYTES # (AUTO) 2.9 10^3/uL (1.5-3.5); LYMPHOCYTES % (AUTO) 33.5 %; MEAN CORPUSCULAR HEMOGLOBIN 25.5 pg (27.0-31.0); MEAN CORPUSCULAR VOLUME 82.3 fL (81.0-99.0); MEAN PLATELET VOLUME 9.6 fL (7.9-10.8); MONOCYTES # (AUTO) 0.6 10^3/uL (0.0-1.0); MONOCYTES % (AUTO) 7.5 %; NEUTROPHILS # (AUTO) 4.5 10^3/uL (1.5-6.6); NEUTROPHILS % (AUTO) 53.4 %; PLT - PLATELET COUNT 352 10^3/uL (130-450); RED BLOOD COUNT 5.09 10^6/uL (4.20-5.40); RED CELL DISTRIBUTION WIDTH 13.2 % (12.0-15.0); WHITE BLOOD COUNT 8.5 x10^3/uL (4.8-10.8)
[2023-06-26 18:33] LABS: BILIRUBIN,URINE NEGATIVE (NEGATIVE); GLUCOSE, URINE (UA) NEGATIVE (NEGATIVE); KETONES,URINE (UA) NEGATIVE (NEGATIVE); LEUKOCYTE ESTERASE, URINE NEGATIVE (NEGATIVE); NITRITE,URINE NEGATIVE (NEGATIVE); OCCULT BLOOD,URINE NEGATIVE (NEGATIVE); PROTEIN,URINE NEGATIVE (NEGATIVE); UROBILINOGEN,URINE 0.2 (NORMAL) E.U./dL (NORMAL)
[2023-06-26 18:34] LABS: CLARITY,URINE CLEAR (CLEAR)
[2023-06-26 19:06] LABS: ALBUMIN 4.4 g/dL (3.2-5.5); ALBUMIN/GLOBULIN RATIO 1.5 (1.0-2.2); BILIRUBIN,TOTAL 0.3 mg/dL (0.2-1.0); CALCIUM 9.2 mg/dL (8.5-10.3); CREATININE 0.8 mg/dL (0.6-1.3); POTASSIUM 4.3 mmol/L (3.5-4.5); TOTAL PROTEIN 7.3 g/dL (6.4-8.9)
[2023-06-26 19:30] LABS: HCG UR QUAL NEGATIVE
--- NOTE | 2023-06-26 20:21 | ED Physician Documentation ---
PD HPI ABD PAIN - Stated complaint Stated Complaint: ABD PX - Chief complaint Chief Complaint: Abd Pain - Additional information Additional information: 42-year-old female presents emergency department for right lower pelvic pain that started around 4:00 today suddenly. She said that she has been feeling a sharp shooting pain to her right ovary like someone is pinching and squeezing it really tightly. She also says that she is been having some nausea with chills she has a history of a partial hysterectomy, ovaries remain intact as well as a bladder sling. She is unsure if she had any true fevers but feels very bloated and just generalized discomfort to that lower pelvic region. 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: Ovarian cysts : Kidney stones HEENT: Chronic vision loss, Other Psych: Depression, Anxiety, Claustrophobia Musculoskeletal: Chronic back pain, Other Derm: None - Past Surgical History Past Surgical History: Yes General: Cholecystectomy, EGD Ortho: Arthroscopic surgery, Other /SILVER SERVICE WAITER: Tubal ligation, Hysterectomy - Present Medications Home Medications: Ambulatory Orders Medication Instructions Recorded Confirmed Citalopram [CeleXA] 40 mg PO DAILY 03/24/14 06/26/23 Levothyroxine [Synthroid] 225 mcg PO DAILY 03/24/14 06/26/23 Acetaminophen [Tylenol] 650 mg PO Q6H PRN 06/12/20 06/26/23 Albuterol Sulf [Ventolin Hfa 1 - 2 puffs INH Q4HR PRN #1 inhaler 04/09/21 06/26/23 Inhaler] Cetirizine HCl/Pseudoephedrine 1 each PO DAILY 07/26/21 06/26/23 [Zyrtec-D Tablet] - Allergies Allergies/Adverse Reactions: Allergies Allergy/AdvReac Type Severity Reaction Status Date / Time bupropion [From Wellbutrin] Allergy facial Verified 06/26/23 18:05 numbess, neurological problems diclofenac AdvReac Severe Nausea Verified 06/26/23 18:05 erythromycin base AdvReac Severe Nausea Verified 06/26/23 18:05 - Social History Does the pt smoke?: No Smoking Status: Never smoker Does the pt drink ETOH?: No Does the pt have substance abuse?: Yes - Immunizations Immunizations are current?: No Immunizations: Other immun not current - POLST Patient has POLST: No PD ED PE NORMAL - Vitals Vital signs reviewed: Yes - General General: Alert and oriented X 3, No acute distress, Well developed/nourished - Cardiac Cardiac: RRR, No murmur, No gallop, Strong equal pulses - Respiratory Respiratory: No respiratory distress, Clear bilaterally - Abdomen Abdomen: Normal bowel sounds, Soft, Non distended, Other (Right lower quadrant tenderness) - Back Back: No CVA TTP - Derm Derm: Normal color, Warm and dry, No rash - Psych Psych: Normal mood, Normal affect Results - Vitals Vitals: Vital Signs - 24 hr 06/26/23 06/26/23 06/26/23 17:58 19:20 20:40 Temperature 36.9 C Heart Rate 63 55 L 75 Respiratory 19 16 20 Rate Blood Pressure 129/69 127/66 123/72 O2 Saturation 97 97 97 06/26/23 06/26/23 06/26/23 21:15 22:04 22:10 Temperature 36.7 C 36.7 C Heart Rate 53 L 67 Respiratory 18 14 Rate Blood Pressure 113/62 118/58 L O2 Saturation 95 97 Oxygen O2 Source Room air - Labs Labs: Laboratory Tests 06/26/23 06/26/23 06/26/23 18:19 18:19 18:26 WBC 8.5 RBC 5.09 Hgb 13.0 Hct 41.9 MCV 82.3 MCH 25.5 L MCHC 31.0 L RDW 13.2 Plt Count 352 MPV 9.6 Neut # (Auto) 4.5 Lymph # (Auto) 2.9 [place] # (Auto) 0.6 Eos # (Auto) 0.4 Baso # (Auto) 0.1 Absolute Nucleated RBC 0.00 Nucleated RBC % 0.0 Sodium 137 Potassium 4.3 Chloride 104 Carbon Dioxide 28 Anion Gap 5.0 L BUN 13 Creatinine 0.8 Estimated GFR (MDRD) 78 L Glucose 93 Calcium 9.2 Total Bilirubin 0.3 AST 14 ALT 15 Alkaline Phosphatase 69 Total Protein 7.3 Albumin 4.4 Globulin 2.9 Albumin/Globulin Ratio 1.5 Lipase 72 Urine Color YELLOW Urine Clarity CLEAR Urine pH 6.0 Ur Specific [place] >=1.030 H Urine Protein NEGATIVE Urine Glucose (UA) NEGATIVE Urine Ketones NEGATIVE Urine Occult Blood NEGATIVE Urine Nitrite NEGATIVE Urine Bilirubin NEGATIVE Urine Urobilinogen 0.2 (NORMAL) Ur Leukocyte Esterase NEGATIVE Ur Microscopic Review NOT INDICATED Urine Culture Comments NOT INDICATED Urine HCG, Qual 06/26/23 18:26 WBC RBC Hgb Hct MCV MCH MCHC RDW Plt Count MPV Neut # (Auto) Lymph # (Auto) [facility] # (Auto) Eos # (Auto) Baso # (Auto) Absolute Nucleated RBC Nucleated RBC % Sodium Potassium Chloride Carbon Dioxide Anion Gap BUN Creatinine Estimated GFR (MDRD) Glucose Calcium Total Bilirubin AST ALT Alkaline Phosphatase Total Protein Albumin Globulin Albumin/Globulin Ratio Lipase Urine Color Urine Clarity Urine pH Ur Specific [place] Urine Protein Urine Glucose (UA) Urine Ketones Urine Occult Blood Urine Nitrite Urine Bilirubin Urine Urobilinogen Ur Leukocyte Esterase Ur Microscopic Review Urine Culture Comments Urine HCG, Qual NEGATIVE - Rads (name of study) Limited abdominal ultrasound Relevant Findings:: Final report received, EMP independent interpretation of test, Other (2 small cyst to right ovary) PD Medical Decision Making - ED course ED course: 42-year-old male presents emergency department for right lower quadrant pain. Ultrasound was complete and she was found to have 2 cysts on her right ovary. I am prescribing a short course of short-acting opioid pain medication for this patient. 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 I have discussed that the opioids are for short term therapy only, and will not be refilled from the ED. patient was told to follow-up with primary care provider to have possible repeat ultrasound done in 3 to 6 months for further analysis and reevaluation of ovarian cyst. No concerns of ovarian torsion given patient presentation. Patient feels significant improvement after receiving pain medication and antinausea medication in the emergency department. Labs are complete and do not reveal any leukocytosis make me less suspicious or worried about a possible appendicitis especially given the symptom onset. No other significant lab abnormalities urinalysis is not indicative of possible urinary tract infection. all questions answered return precautions given. Departure - Departure Disposition: 01 Home, Self Care Clinical Impression: Ovarian cyst Qualifiers: Laterality: right Qualified Code(s): N83.201 - Unspecified ovarian cyst, right side Instructions: Cysts Ovarian Comments: Thank you for trusting us with your care. We have completed an ultrasound and found that you have a right ovarian cyst. We have given you nausea and pain meds here in the emergency department to help with this there is no further emergent workup indicated at this time. Please follow-up with your primary care provider to see if you need to repeat ultrasound in 3 to 6 months to make sure that your ovarian cyst is not growing. Please come back to the emergency department if you are having fevers or chills or any other concerning emergent symptoms. I am prescribing a short course of narcotic pain medication for you. These are potentially dangerous and addictive medications that should be used carefully. These medications may constipate you. Take an [id number] stool softener (docusate) twice daily with plenty of water while taking these medications. If you go 24 hours without a bowel movement, take [id number] miralax, per package instructions. Do not drink or drive while taking these medications. If you received narcotic or sedating medications while in the emergency department, do not drive for 24 hours. Store this medication in a safe, secure place and out of reach of children. It is a violation of federal law to give or sell this medication to another person or to use in a manner other than prescribed. The ED will not refill narcotic prescriptions, including prescriptions lost or stolen. To dispose of unwanted medications: 1. [facility] [address] [facility] in [place] has a medication drop box. They accept prescription medications (in pill form) Friday through Friday 9:00 a.m. to 5:00 p.m. 2. The [facility] [employer] accepts prescription medications (in pill form only) for disposal year round. Call for more information. 3. Contact the [facility] for the next [facility] sponsored prescription drug collection event. , [phone], or [phone]; Note that many narcotic pain relievers also contain Tylenol/acetaminophen. Please ensure that your total dose of acetaminophen from all sources does not exceed 3 g (3000 mg) per day. Forms: PCP List Discharge Date/Time: 06/26/23 22:17
[2023-06-26] MEDS: ONDANSETRON 4 MG/2 ML VIAL IVP STA ×2 (20:44→21:35)
[2023-06-26] MEDS: HYDROmorphone 0.5 MG/0.5 ML SYRINGE IVP STA ×2 (20:48→21:44)
[2023-06-26] MEDS ORDERED: iohexoL-300 100 ML VIAL ONE (21:00)
[2023-06-26] MEDS: ACETAMINOPHEN 325 MG TABLET PO STA (21:34)
[2023-06-26] MEDS: oxyCODONE/ACET 5/325 Prepack 4 PO STA (21:35)
[2023-06-26] MEDS: ONDANSETRON ODT 4 MG Prepack 2 TL PRN (21:35)
--- NOTE | 2023-06-26 21:38 | Ultrasound Report ---
PROCEDURE: Pelvic w/Doppler Complete INDICATIONS: RLQ pain TECHNIQUE: Real-time endovaginal scanning was performed of the pelvic organs, with image documentation. COMPARISON: CT abdomen/pelvis 04/27/2023, pelvic ultrasound 07/26/2021 FINDINGS: Uterus: Status post hysterectomy. Ovaries: The right ovary measures 3.4 x 2.3 x 3.1 cm, with a calculated ovarian volume of 12.8 cc. The left ovary measures 2.1 x 1.5 x 2.2 cm, with a calculated ovarian volume of 3.5 cc. Right ovarian complex cyst with thick lagos is seen measuring 2.1 x 1.9 x 2.0 cm. Additional simple right ovarian cyst measures 1.9 x 1.4 x 1.8 cm. Less than 12 follicles can be seen in each ovary. No adnexal cassius s are seen. No cystic lesions measuring greater than 3 cm. Other: No pathologic free abdominal or pelvic fluid. IMPRESSION: 1.No sonographic signs of ovarian torsion. 2.Right ovarian 2.1 cm thick-walled cyst is nonspecific and may represent a regressing physiologic cy st. Consider follow-up ultrasound in 6-12 weeks. 3.Status post hysterectomy. Reviewed by: Mani Dominguez MD on 06/26/2023 9:36 PM PDT Approved by: Mani Dominguez MD on 06/26/2023 9:36 PM PDT Station ID: [id number]
[2023-06-26] MEDS: KETOROLAC 30 MG/ML VIAL IVP STA (21:41)
[2023-06-26 23:44] VITALS: BP 118/58; O2SAT 97
== END 2023-06-26 22:17 | disposition home or self-care (01) ==
LOC: ED 17:21
DX: N83.201 Unspecified ovarian cyst, right side (principal); E03.9 Hypothyroidism, unspecified; Z79.899 Other long term (current) drug therapy
CPT/HCPCS: 36415; 76856; 80053; 81003; 81025; 83690; 85025; 93975; 96374; 96375; 96376; 99284; A9270; J1170; 81001; 87086

== ENCOUNTER 2023-06-27 22:41 | Emergency (ER) | payer MEDICAID ==
[2023-06-27 22:56] VITALS: BP 131/61
--- NOTE | 2023-06-28 00:26 | ED Physician Documentation ---
PD HPI ABD PAIN - Stated complaint Stated Complaint: PELVIC PX/LOWER BACK PX - Chief complaint Chief Complaint: Abd Pain - History obtained from History obtained from: Patient, Family - History of Present Illness Timing - onset: Yesterday Timing - duration: Days (1) Timing - details: Abrupt onset, Still present Quality: Cramping, Sharp, Fullness/distended, Pain Location: RLQ, Suprapubic, LLQ Radiation: Lower back Improved by: Laying still Worsened by: Moving, Palpation Associated symptoms: Nausea, Constipation. No: Vomiting Similar symptoms before: Diagnosis (ovarian cyst) Recently seen: Emergency Dept (yesterday) - Additional information Additional information: 42-year-old Rodriguez Carpenter has had some difficulty with pain in her abdomen that is spiking and a hard cramp. She was seen here in the emergency department and an ultrasound was obtained for pelvic pain demonstrating ovarian cyst and the patient was administered pain medication. She has been having episodes of this severe pain since. She believes she has not had a bowel movement in 2 days. She does not feel like she has to go to the bathroom. 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: Ovarian cysts : Kidney stones HEENT: Chronic vision loss, Other Psych: Depression, Anxiety, Claustrophobia Musculoskeletal: Chronic back pain, Other Derm: None - Past Surgical History Past Surgical History: Yes General: Cholecystectomy, EGD Ortho: Arthroscopic surgery, Other /US CUSTOMS AND BORDER OFFICER: Tubal ligation, Hysterectomy - Present Medications Home Medications: Ambulatory Orders Medication Instructions Recorded Confirmed Citalopram [CeleXA] 40 mg PO DAILY 03/24/14 06/28/23 Levothyroxine [Synthroid] 225 mcg PO DAILY 03/24/14 06/28/23 Acetaminophen [Tylenol] 650 mg PO Q6H PRN 06/12/20 06/28/23 Albuterol Sulf [Ventolin Hfa 1 - 2 puffs INH Q4HR PRN #1 inhaler 04/09/21 06/28/23 Inhaler] Cetirizine HCl/Pseudoephedrine 1 each PO DAILY 07/26/21 06/28/23 [Zyrtec-D Tablet] - Allergies Allergies/Adverse Reactions: Allergies Allergy/AdvReac Type Severity Reaction Status Date / Time bupropion [From Wellbutrin] Allergy facial Verified 06/27/23 22:51 numbess, neurological problems diclofenac AdvReac Severe Nausea Verified 06/27/23 22:51 erythromycin base AdvReac Severe Nausea Verified 06/27/23 22:51 - Social History Does the pt smoke?: No Smoking Status: Never smoker Does the pt drink ETOH?: No Does the pt have substance abuse?: Yes - Immunizations Immunizations are current?: No Immunizations: Other immun not current - POLST Patient has POLST: No PD ED PE NORMAL - Vitals Vital signs reviewed: Yes (Tachypneic and hypertensive with wide pulse pressure) - General General: Alert and oriented X 3, Well developed/nourished, Other (winches periodically in pain ) - HEENT HEENT: Atraumatic, PERRL, EOMI - Neck Neck: Supple, no meningeal sign, No bony TTP - Cardiac Cardiac: RRR, No murmur - Respiratory Respiratory: No respiratory distress, Clear bilaterally - Abdomen Abdomen: Normal bowel sounds, Soft, Non distended, No organomegaly, Other (mild Right and left lower quadrant pain to palpation ) - Back Back: No CVA TTP, No spinal TTP - Derm Derm: Normal color, Warm and dry, No rash - Extremities Extremities: No deformity, No edema, No calf tenderness / cord - Neuro Neuro: Alert and oriented X 3, watch commander 2-12 intact, No motor deficit, No sensory def icit, Normal speech Eye Opening: Spontaneous Motor: Obeys Commands Verbal: Oriented GCS Score: 15 - Psych Psych: Normal mood, Normal affect Results - Vitals Vitals: Vital Signs - 24 hr 06/27/23 06/28/23 06/28/23 22:46 00:51 01:25 Temperature 36.7 C Heart Rate 80 60 Respiratory 26 H 16 24 Rate Blood Pressure 131/61 H O2 Saturation 96 97 06/28/23 02:00 Temperature Heart Rate 60 Respiratory 13 Rate Blood Pressure O2 Saturation 96 Oxygen O2 Source Room air - Labs Labs: Laboratory Tests 06/28/23 06/28/23 06/28/23 00:00 00:51 00:51 WBC 7.8 RBC 4.51 Hgb 11.6 L Hct 37.6 MCV 83.4 MCH 25.7 L MCHC 30.9 L RDW 13.2 Plt Count 319 MPV 9.8 Neut # (Auto) 3.9 Lymph # (Auto) 2.7 [place] # (Auto) 0.6 Eos # (Auto) 0.4 Baso # (Auto) 0.1 Absolute Nucleated RBC 0.00 Nucleated RBC % 0.0 Sodium 136 Potassium 3.9 Chloride 105 Carbon Dioxide 25 Anion Gap 6.0 BUN 16 Creatinine 0.9 Estimated GFR (MDRD) 68 L Glucose 97 Calcium 8.7 Total Bilirubin 0.2 AST 29 ALT 46 Alkaline Phosphatase 80 Total Protein 6.6 Albumin 3.9 Globulin 2.7 Albumin/Globulin Ratio 1.4 Lipase 26 Urine Color YELLOW Urine Clarity CLEAR Urine pH 5.5 Ur Specific [place] >=1.030 H Urine Protein NEGATIVE Urine Glucose (UA) NEGATIVE Urine Ketones NEGATIVE Urine Occult Blood NEGATIVE Urine Nitrite NEGATIVE Urine Bilirubin NEGATIVE Urine Urobilinogen 0.2 (NORMAL) Ur Leukocyte Esterase NEGATIVE Ur Microscopic Review NOT INDICATED Urine Culture Comments NOT INDICATED - Rads (name of study) CT ab pel Relevant Findings:: Prelim report reviewed (Impression: 1. Increase stool burden. Normal appendix. Stable left adrenal nodule. Postcholecystectomy.), EMP independent interpretation of test PD Medical Decision Making - ED course Complexity details: reviewed old records, reviewed results, re-evaluated patient, considered differential, d/w patient Reviewed Lab Results: We reviewed a complete blood count showing a normal white blood cell count of 7.8 hemoglobin was mildly low at 11.6 hematocrit normal at 37.6 platelets normal at 319,000 chemistries showed normal electrolytes normal kidney and liver function the urinalysis with a specific gravity 1.030 is otherwise negative. These laboratory values do not contribute to any specific diagnosis. They do make overwhelming infection related to this pain less likely. A CT scan of the abdomen pelvis reveals a significant stool burden without otherwise reasons for abdominal pain noted. ED course: 42-year-old Rodriguez Carpenter presents to the emergency department with episodic severe abdominal cramping. Her history is consistent with constipation her examination is consistent with constipation as is the findings on her CT scan. She does have constipation mostly related to the right side of the colon and the transverse colon and not the descending colon. For this reason we administered milk of magnesia. The patient did require analgesia and this was given in the form of Toradol when she first arrived and she is given a second dose as well as some Tylenol at the time of treatment. I did not find a reason to keep the patient in the emergency department any longer and allowed her to leave the emergency department prior to producing stool. Departure - Departure Disposition: 01 Home, Self Care Clinical Impression: Constipation Qualifiers: Constipation type: unspecified constipation type Qualified Code(s): K59.00 - Constipation, unspecified Condition: Stable Instructions: ED Constipation Follow-Up: Margareth Aguiar PA-C [Primary Care Provider] - Comments: Rodriguez, today it looks like the severe pain you are having is related to a significant stool burden in your right colon. We have given you a dose of milk of magnesia and our expectation is that this should work to move the stool within 6 hours. If you do not have results to take a second dose. Forms: PCP List, Activity restrictions
[2023-06-28 00:33] LABS: BILIRUBIN,URINE NEGATIVE (NEGATIVE); CLARITY,URINE CLEAR (CLEAR); GLUCOSE, URINE (UA) NEGATIVE (NEGATIVE); KETONES,URINE (UA) NEGATIVE (NEGATIVE); LEUKOCYTE ESTERASE, URINE NEGATIVE (NEGATIVE); NITRITE,URINE NEGATIVE (NEGATIVE); OCCULT BLOOD,URINE NEGATIVE (NEGATIVE); PH,URINE 5.5 PH (5.0-7.5); PROTEIN,URINE NEGATIVE (NEGATIVE); UROBILINOGEN,URINE 0.2 (NORMAL) E.U./dL (NORMAL)
[2023-06-28] MEDS: KETOROLAC 30 MG/ML VIAL IVP STA ×2 (00:33→02:50)
[2023-06-28] MEDS ORDERED: iohexoL-300 100 ML VIAL ONE (00:39)
[2023-06-28 01:00] LABS: BASOPHILS # (AUTO) 0.1 10^3/uL (0.0-0.1); BASOPHILS % (AUTO) 1.2 %; EOSINOPHILS # (AUTO) 0.4 10^3/uL (0.0-0.7); EOSINOPHILS % (AUTO) 5.3 %; HCT - HEMATOCRIT 37.6 % (37.0-47.0); HGB - HEMOGLOBIN 11.6 g/dL (12.0-16.0); LYMPHOCYTES # (AUTO) 2.7 10^3/uL (1.5-3.5); LYMPHOCYTES % (AUTO) 34.8 %; MEAN CORPUSCULAR HEMOGLOBIN 25.7 pg (27.0-31.0); MEAN CORPUSCULAR HGB CONC 30.9 g/dL (32.0-36.0); MEAN CORPUSCULAR VOLUME 83.4 fL (81.0-99.0); MEAN PLATELET VOLUME 9.8 fL (7.9-10.8); MONOCYTES # (AUTO) 0.6 10^3/uL (0.0-1.0); MONOCYTES % (AUTO) 7.9 %; NEUTROPHILS # (AUTO) 3.9 10^3/uL (1.5-6.6); NEUTROPHILS % (AUTO) 50.5 %; PLT - PLATELET COUNT 319 10^3/uL (130-450); RED BLOOD COUNT 4.51 10^6/uL (4.20-5.40); RED CELL DISTRIBUTION WIDTH 13.2 % (12.0-15.0); WHITE BLOOD COUNT 7.8 x10^3/uL (4.8-10.8)
[2023-06-28 01:14] LABS: ALBUMIN 3.9 g/dL (3.2-5.5); ALBUMIN/GLOBULIN RATIO 1.4 (1.0-2.2); BILIRUBIN,TOTAL 0.2 mg/dL (0.2-1.0); CALCIUM 8.7 mg/dL (8.5-10.3); CREATININE 0.9 mg/dL (0.6-1.3); POTASSIUM 3.9 mmol/L (3.5-4.5); TOTAL PROTEIN 6.6 g/dL (6.4-8.9)
[2023-06-28] MEDS: IPRATROPIUM/ALBUTEROL 3 ML NEB INH STA (01:25)
[2023-06-28] MEDS: iohexoL-300 100 ML VIAL IVP ONE (02:05)
[2023-06-28 02:35] VITALS: O2SAT 96
[2023-06-28] MEDS: MAGNESIUM HYDROXIDE 2,400 MG/30 ML UDC PO STA (02:49)
[2023-06-28] MEDS: ACETAMINOPHEN 325 MG TABLET PO STA (02:50)
--- NOTE | 2023-06-28 08:25 | CT Report ---
PROCEDURE: Abdomen/Pelvis W INDICATIONS: lower abdominal pain severe bloating CONTRAST: 100ML OMNI 300 TECHNIQUE: After the administration of intravenous contrast, a CT scan of the abdomen and pelvis was performed. Images were recorded and evaluated at appropriate window settings. Reformats: coronal and sagittal. F or radiation dose reduction, the following was used: automated exposure control, adjustment of mA and /or kV according to patient size. COMPARISON: CT abdomen and pelvis without contrast. FINDINGS: Image quality: Diagnostic. Lower chest: Unremarkable. Liver: No solid mass. Gallbladder and biliary tree: Surgically absent Spleen: No splenomegaly. Pancreas: No pancreatic ductal dilation. Adrenals: Stable benign 2.3 x 3.0 cm left adrenal adenoma. Kidneys and ureters: No hydronephrosis. No renal cystic lesion which requires follow up. No solid mas s. Stomach, bowel and peritoneum: No bowel distension. No pathologic free fluid. Large right colonic and transverse colonic fecal load. Lymph nodes: No central or retroperitoneal adenopathy. Vessels: No infrarenal aortic aneurysm. PELVIS Reproductive organs: Uterus is surgically absent.. Bladder: No abnormal wall thickening, accounting for underdistention. Pelvic lymph nodes: No pelvic adenopathy by size criteria. Bones: No aggressive osseous abnormality. Other: No significant ventral or inguinal hernia. IMPRESSION: 1. No acute abdominal process. 2. Remote hysterectomy and cholecystectomy. 3. Large right colonic and transverse colonic fecal load. 4. Known benign left adrenal nodule, measuring 2.3 x 3.0 cm Findings are concordant with preliminary interpretation provided by [facility]. Reviewed by: Danny Monge MD on 06/28/2023 8:24 AM PDT Approved by: Danny Monge MD on 06/28/2023 8:24 AM PDT Station ID: [id number]
== END 2023-06-28 02:57 | disposition home or self-care (01) ==
LOC: ED 22:41
DX: K59.00 Constipation, unspecified (principal)
CPT/HCPCS: 36415; 74177; 80053; 81003; 83690; 85025; 94640; 94664; 96374; 96376; 99283; 99284; A9270; Q9967; 81001; 87086

== ENCOUNTER 2023-08-15 11:04 | Emergency (ER) | payer MEDICAID ==
[2023-08-15] MEDS: oxyCODONE 5 MG TABLET PO STA (12:08)
[2023-08-15] MEDS: LIDOCAINE 2%-EPI 1:100000 20 ML MDV SUBQ STA (12:08)
--- NOTE | 2023-08-15 12:52 | ED Physician Documentation ---
History of Present Illness - Stated complaint Stated Complaint: LUMP LT ARMPIT - Chief complaint Chief Complaint: Wound - History obtained from History obtained from: Patient - History of Present Illness Timing: How many days ago (several days) Pain level max: 8 Pain level now: 8 - Additonal information Additional information: 43-year-old female presents to the emergency department complaining of a lump under her left axilla. She states that she was seen at the walk-in clinic yesterday and told that it is likely an abscess and that the may need to be drained. She states that they started her on Bactrim. She was told to return if it became worse. She states that it has increased in size today. No fevers. No chills. Worse with palpation and movement. Nothing makes it better. 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 cysts : Kidney stones HEENT: Chronic vision loss, Other Psych: Depression, Anxiety, Claustrophobia Musculoskeletal: Chronic back pain, Other Derm: None - Past Surgical History Past Surgical History: Yes General: Cholecystectomy, EGD Ortho: Arthroscopic surgery, Other /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 HEAT 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: Tubal ligation, Hysterectomy - Present Medications Home Medications: Ambulatory Orders Medication Instructions Recorded Confirmed Citalopram [CeleXA] 40 mg PO DAILY 03/24/14 06/28/23 Levothyroxine [Synthroid] 225 mcg PO DAILY 03/24/14 06/28/23 Acetaminophen [Tylenol] 650 mg PO Q6H PRN 06/12/20 06/28/23 Albuterol Sulf [Ventolin Hfa 1 - 2 puffs INH Q4HR PRN #1 inhaler 04/09/21 06/28/23 Inhaler] Cetirizine HCl/Pseudoephedrine 1 each PO DAILY 07/26/21 06/28/23 [Zyrtec-D Tablet] HYDROcod/ACETAM 5/325 [[place] 5/325] 1 - 2 ea PO Q6H PRN #10 tablet 08/15/23 cephALEXin [Keflex] 500 mg PO Q6H #28 cap 08/15/23 - Allergies Allergies/Adverse Reactions: Allergies Allergy/AdvReac Type Severity Reaction Status Date / Time bupropion [From Wellbutrin] Allergy facial Verified 08/15/23 11:14 numbess, neurological problems diclofenac AdvReac Severe Nausea Verified 08/15/23 11:14 erythromycin base AdvReac Severe Nausea Verified 08/15/23 11:14 - Social History Does the pt smoke?: No Smoking Status: Current every day smoker Does the pt drink ETOH?: No Does the pt have substance abuse?: Yes - Immunizations Immunizations are current?: No Immunizations: Other immun not current - POLST Patient has POLST: No PD ED PE NORMAL - Vitals Vital signs reviewed: Yes - General General: Alert and oriented X 3, No acute distress - HEENT HEENT: Moist mucous membranes - Cardiac Cardiac: RRR, Strong equal pulses - Respiratory Respiratory: No respiratory distress, Clear bilaterally - Derm Derm: Warm and dry - Extremities Extremities: Other (3 x 3 cm indurated fluctuant area to the left axilla. Mild erythema.) - Neuro Neuro: Alert and oriented X 3 - Psych Psych: Normal mood, Normal affect Results - Vitals Vitals: Vital Signs - 24 hr 08/15/23 08/15/23 11:10 11:14 Temperature 36.4 C L 36.5 C Heart Rate 88 88 Respiratory 20 20 Rate Blood Pressure 146/93 H 146/97 H O2 Saturation 97 97 Oxygen O2 Source Room air Procedures - Abscess I&D (location) L axilla Preparation: Confirmed with ultrasound, Chlorhexadine, Lidocaine 1%, With epi Incision: Incised with scalpel, Purulent drainage, Loculations broken, Packed, Culture obtained Other: Pt tolerated well, Dressing applied, Antibiotic prescribed PD Medical Decision Making - ED course Complexity details: re-evaluated patient, considered differential, d/w patient ED course: 43-year-old female with a left axillary abscess. Incised and drained. Tolerated well. Culture sent. She is on Bactrim already, will add Keflex. Will prescribe pain medication for home as well. We will have her return either here, the walk-in clinic or with her doctor in 2 to 3 days for wound check. Patient counseled regarding signs and symptoms for which I believe and urgent re-evaluation would be necessary. Patient with good understanding of and agreement to plan and is comfortable going home at this time This document was made in part using voice recognition software. While efforts are made to proofread this document, sound alike and grammatical errors may occur. Departure - Departure Disposition: 01 Home, Self Care Clinical Impression: Abscess Condition: Good Instructions: ED Abscess IandD Follow-Up: Margareth Aguiar PA-C [Primary Care Provider] - Prescriptions: cephALEXin [Keflex] 500 mg PO Q6H #28 cap HYDROcod/ACETAM 5/325 [[place] 5/325] 1 - 2 ea PO Q6H PRN #10 tablet PRN Reason: Pain Comments: Your prescription was sent to [email or web address] in [place]. Please continue the Bactrim as previously prescribed. We are adding a second antibiotic. If a change to your antibiotic is needed, we will contact you. I would recommend you follow-up either here, with your doctor or one of the walk-in clinics in 2 to 3 days for a wound check. We have left packing in place to help this drain. If it happens to fall out, does not need to be replaced urgently. I am prescribing a short course of narcotic pain medication for you. These are potentially dangerous and addictive medications that should be used carefully. These medications may constipate you. Take an [id number]-[place]ct[place] stool softener (docusate) twice daily with plenty of water while taking these medications. If you go 24 hours without a bowel movement, take [id number] miralax, per package instructions. Do not drink or drive while taking these medications. If you received narcotic or sedating medications while in the emergency department, do not drive for 24 hours. Store this medication in a safe, secure place and out of reach of children. It is a violation of federal law to give or sell this medication to another person or to use in a manner other than prescribed. The ED will not refill narcotic prescriptions, including prescriptions lost or stolen. To dispose of unwanted medications: 1. [facility] [address] in [place] has a medication drop box. They accept prescription medications (in pill form) Friday through Friday 9:00 a.m. to 5:00 p.m. 2. [facility] [employer] accepts prescription medications (in pill form only) for disposal year round. Call for more information. 3. Contact the [facility] for the next [facility] sponsored prescription drug collection event. , [phone], or [phone]; Forms: PCP List
[2023-08-15 13:03] VITALS: BP 130/88; O2SAT 98
== END 2023-08-15 12:58 | disposition home or self-care (01) ==
LOC: ED 11:04
DX: L02.412 Cutaneous abscess of left axilla (principal); E03.9 Hypothyroidism, unspecified; F17.200 Nicotine dependence, unspecified, uncomplicated; Z79.899 Other long term (current) drug therapy; Z88.1 Allergy status to other antibiotic agents
CPT/HCPCS: 10060; 87070; 87181; 87205; 99283; A9270

== ENCOUNTER 2023-08-16 20:01 | Emergency (ER) | payer MEDICAID ==
--- NOTE | 2023-08-16 20:21 | ED Physician Documentation ---
PD HPI WOUND RECHECK - Stated complaint Stated Complaint: WOUND CARE - Chief complaint Chief Complaint: Wound - Histroy obtained from History obtained from: Patient - Additional information Additional information: She had an abscess in the left axilla drained yesterday. She went to work today and throughout the course of the day her pain was quite severe noting that she could not take any of her pain medications because she was working and now is feeling quite nauseous she thinks related to the pain but potentially due to the Bactrim. She was prescribed cephalexin but has not started it yet. Wound cultures growing staph, sensitivities not available yet. PD PAST MEDICAL HISTORY - Past Medical History Past Medical History: Yes Cardiovascular: None Respiratory: Asthma Neuro: Migraines Endocrine/Autoimmune: HyPOthyroidism, Other GI: None MANAGER FUND: Ovarian cysts : Kidney stones HEENT: Chronic vision loss, Other Psych: Depression, Anxiety, Claustrophobia Musculoskeletal: Chronic back pain, Other Derm: None - Past Surgical History Past Surgical History: Yes General: Cholecystectomy, EGD Ortho: Arthroscopic surgery, Other /MANAGER FUND: Tubal ligation, Hysterectomy - Present Medications Home Medications: Ambulatory Orders Medication Instructions Recorded Confirmed Citalopram [CeleXA] 40 mg PO DAILY 03/24/14 06/28/23 Levothyroxine [Synthroid] 225 mcg PO DAILY 03/24/14 06/28/23 Acetaminophen [Tylenol] 650 mg PO Q6H PRN 06/12/20 06/28/23 Albuterol Sulf [Ventolin Hfa 1 - 2 puffs INH Q4HR PRN #1 inhaler 04/09/21 06/28/23 Inhaler] Cetirizine HCl/Pseudoephedrine 1 each PO DAILY 07/26/21 06/28/23 [Zyrtec-D Tablet] HYDROcod/ACETAM 5/325 [[place] 5/325] 1 - 2 ea PO Q6H PRN #10 tablet 08/15/23 cephALEXin [Keflex] 500 mg PO Q6H #28 cap 08/15/23 - Allergies Allergies/Adverse Reactions: Allergies Allergy/AdvReac Type Severity Reaction Status Date / Time bupropion [From Wellbutrin] Allergy facial Verified 08/16/23 20:03 numbess, neurological problems diclofenac AdvReac Severe Nausea Verified 08/16/23 20:03 erythromycin base AdvReac Severe Nausea Verified 08/16/23 20:03 - Social History Does the pt smoke?: No Smoking Status: Never smoker Does the pt drink ETOH?: No Does the pt have substance abuse?: Yes - Immunizations Immunizations are current?: No Immunizations: Other immun not current - POLST Patient has POLST: No PD ED PE NORMAL - Vitals Vital signs reviewed: Yes - General General: Alert and oriented X 3, No acute distress - Extremities Extremities: Other (There is a small draining abscess with packing in place but no cellulitis in the left axilla.) - Neuro Neuro: Alert and oriented X 3 Results - Vitals Vitals: Vital Signs - 24 hr 08/16/23 20:03 Temperature 37.2 C Heart Rate 82 Respiratory 16 Rate Blood Pressure 147/83 H O2 Saturation 98 Oxygen O2 Source Room air PD Medical Decision Making - ED course ED course: There is an abscess in the left axilla with packing in place. Pain is uncontrolled but she did not take any pain medication today because she had to work. She also has become nauseous which she thinks might be related to the Bactrim. It is not MRSA at this point so advised she can just do the cephalexin and she is given a milligram of Dilaudid and 4 mg of IM Zofran. Packing was removed. It is clearly draining I do not think it needs repacking. Departure - Departure Disposition: 01 Home, Self Care Clinical Impression: Abscess Condition: Good Record reviewed to determine appropriate education?: Yes Instructions: ED Abscess IandD Comments: You were seen today for uncontrolled pain in the setting of a drained abscess in the left axilla. Take tomorrow off of work and rest. You can wash with soap and water. If it reaccumulates you can return for repeat incision and drainage. At this point given your symptoms I think it is okay to just take the cephalexin/Keflex. Your wound culture is pending and if it requires a change we will call you tomorrow the next day. Forms: PCP List, Activity restrictions
[2023-08-16] MEDS: ONDANSETRON 4 MG/2 ML VIAL IM STA (20:37)
[2023-08-16] MEDS: HYDROmorphone 1 MG/ML CARPUJECT IM STA (20:38)
[2023-08-16] MEDS: ONDANSETRON ODT 4 MG Prepack 2 TL STA (20:40)
[2023-08-16 20:56] VITALS: BP 128/60; O2SAT 94
== END 2023-08-16 21:11 | disposition home or self-care (01) ==
LOC: ED 20:01
DX: L02.91 Cutaneous abscess, unspecified (principal); B95.8 Unspecified staphylococcus as the cause of diseases classified elsewhere; E03.9 Hypothyroidism, unspecified; Z79.899 Other long term (current) drug therapy
CPT/HCPCS: 96372; 99283; A9270; J1170

== ENCOUNTER 2023-08-17 13:30 | Emergency (ER) | payer MEDICAID ==
--- NOTE | 2023-08-17 13:39 | ED Physician Documentation ---
PD HPI WOUND RECHECK - Stated complaint Stated Complaint: LT ARMPIT PX/LUMP - Histroy obtained from History obtained from: Patient - History of Present Illness Location: Other (left axilla) Timing - onset: How many days ago (The patient had a left axillary abscess that was initially treated with antibiotics but not improving. Incision and drainage was done that had decompression of the area with much less pain. Seen for follow-up of it with pain from the packing. That was removed and she states the pain much less.) Associated symptoms: Drainage (she states the area had some draiange last night, but not this morning and feels pressured again.). No: Fever Recently seen: Clinic, Emergency Dept (seen for infection in Walk In without I&D, just abx. then ER with I&D. Packing removal and recheck 2 days ago here. Was doing better.) Review of Systems Constitutional: denies: Fever, Chills PD PAST MEDICAL HISTORY - Past Medical History Cardiovascular: None Respiratory: Asthma Neuro: Migraines Endocrine/Autoimmune: HyPOthyroidism, Other GI: None [employer]: Ovarian cysts : Kidney stones HEENT: Chronic vision loss, Other Psych: Depression, Anxiety, Claustrophobia Musculoskeletal: Chronic back pain, Other Derm: None - Past Surgical History Past Surgical History: Yes General: Cholecystectomy, EGD Ortho: Arthroscopic surgery, Other /[employer]OR: Tubal ligation, Hysterectomy - Present Medications Home Medications: Ambulatory Orders Medication Instructions Recorded Confirmed Citalopram [CeleXA] 40 mg PO DAILY 03/24/14 08/17/23 Levothyroxine [Synthroid] 225 mcg PO DAILY 03/24/14 08/17/23 Acetaminophen [Tylenol] 650 mg PO Q6H PRN 06/12/20 08/17/23 Albuterol Sulf [Ventolin Hfa 1 - 2 puffs INH Q4HR PRN #1 inhaler 04/09/21 08/17/23 Inhaler] Cetirizine HCl/Pseudoephedrine 1 each PO DAILY 07/26/21 08/17/23 [Zyrtec-D Tablet] HYDROcod/ACETAM 5/325 [[place] 5/325] 1 - 2 ea PO Q6H PRN #10 tablet 08/15/23 08/17/23 cephALEXin [Keflex] 500 mg PO Q6H #28 cap 08/15/23 08/17/23 Doxycycline Hyclate 100 mg PO BID 7 Days #14 cap 08/17/23 HYDROcod/ACETAM 5/325 [[place] 5/325] 1 ea PO Q6H PRN #14 tablet 08/17/23 HYDROcod/ACETAM 5/325 [[place] 5/325] 1 ea PO Q6H PRN #14 tablet 08/17/23 Ondansetron Odt [Zofran] 4 mg TL Q6H PRN #10 tablet 08/17/23 - Allergies Allergies/Adverse Reactions: Allergies Allergy/AdvReac Type Severity Reaction Status Date / Time bupropion [From Wellbutrin] Allergy facial Verified 08/17/23 13:36 numbess, neurological problems diclofenac AdvReac Severe Nausea Verified 08/17/23 13:36 erythromycin base AdvReac Severe Nausea Verified 08/17/23 13:36 - Social History Does the pt smoke?: No Smoking Status: Current every day smoker Does the pt drink ETOH?: No Does the pt have substance abuse?: Yes - Immunizations Immunizations are current?: No Immunizations: Other immun not current - POLST Patient has POLST: No PD ED PE NORMAL - Vitals Vital signs reviewed: Yes - General General: Alert and oriented X 3, Well developed/nourished, Other (has pain and tenderness in left armpit. APpears uncomfortable. ) - Derm Derm: Normal color, Warm and dry - Neuro Neuro: Alert and oriented X 3, No motor deficit, No sensory deficit, Normal s peech, Other (left armpit with prior I&D incision which appears to be closed/edges adhered. There is point of purulence noted one end. Tender with some fluctuance under. No redness of the skin. ) Results - Vitals Vitals: Vital Signs - 24 hr 08/17/23 08/17/23 13:36 15:49 Temperature 37.3 C 37.0 C Heart Rate 77 72 Respiratory 20 16 Rate Blood Pressure 124/78 122/74 O2 Saturation 96 98 Oxygen O2 Source Room air PD Medical Decision Making - ED course Complexity details: reviewed old records (prior visit as well as the wound culture results from few days ago. ), reviewed results, considered differential, d/w patient ED course: It appears the abscess I&D spot has closed and has return of some infection fluid. topical LET placed on area and then local lido with epi. Scalpel used to open the prior wound and some purulence out. Small strip of packing placed into the opening as a wick and not meant as large packing. Departure - Departure Disposition: 01 Home, Self Care Clinical Impression: Encounter for recheck of abscess following incision and drainage Condition: Stable Record reviewed to determine appropriate education?: Yes Follow-Up: Margareth Aguiar PA-C [Primary Care Provider] - Prescriptions: Doxycycline Hyclate 100 mg PO BID 7 Days #14 cap HYDROcod/ACETAM 5/325 [[place] 5/325] 1 ea PO Q6H PRN #14 tablet PRN Reason: Pain HYDROcod/ACETAM 5/325 [[place] 5/325] 1 ea PO Q6H PRN #14 tablet PRN Reason: Pain Ondansetron Odt [Zofran] 4 mg TL Q6H PRN #10 tablet PRN Reason: Nausea / Vomiting Comments: This presumably should drain better with it reopened. The wound had actually started to seal closed which attests to how well you are healing that it was able to close within a couple of days. However it is better for her to be open and still draining. As you are on the antibiotics for a few more days there should be less purulence produced and the need for her to stay open will be less. Warm moist towels to the area to help improve blood flow to the area for infection. It is unclear whether you are nausea and such previously were related to the antibiotics or just the illness. We do have the culture result back now today so that helps direct and target the antibiotic choices. At this point you can discontinue the cephalexin as it does not provide coverage for the Staph aureus that was growing on the culture. I prescribed doxycycline twice daily to take with food in hopes that we will be better on your stomach. It is should be effective based on the culture. The previous trimethoprim sulfa/Bactrim would be effective on the germ as well but you can hold it for now since it might have caused some of your upset stomach. Use some anti-inflammatory such as ibuprofen or naproxen with food. Withhold this if your stomach feels upset with that and just use Tylenol 500 to 650 mg 4 times a day. I prescribed more of your pain medicine to use every 4-6 hours if needed for worse pain. I would anticipate needing this only for the first or next 2 to 3 days. Recheck if not steadily improving over the next several days and return if worse. I sent your prescriptions to the [facility] in [place] as [facility] [place] is closed on Friday. I am prescribing a short course of narcotic pain medication for you. These are potentially dangerous and addictive medications that should be used carefully. These medications may constipate you. Take an qjuw-hye-shkdryp stool softener such as docusate twice daily with plenty of water while taking these medications. If you go 24 hours without a bowel movement, take [id number] MiraLAX, per package instructions. Do not drink or drive while taking these medications. If you received narcotic or sedating medications while in the emergency department do not drive for 24 hours. Store this medication in a safe, secure place and out of reach of children. It is a violation of federal law to give or sell this medication to another person or to use in a manner other than prescribed. The ED will not refill narcotic prescriptions, including prescriptions lost or stolen. You can dispose of unwanted medications at the [facility]'s office or at several pharmacies such as [facility]. Forms: PCP List Discharge Date/Time: 08/17/23 15:49
[2023-08-17] MEDS: DOXYCYCLINE 100 MG TABLET PO STA (14:19)
[2023-08-17] MEDS: KETOROLAC 30 MG/ML VIAL IM STA (14:19)
[2023-08-17] MEDS: ONDANSETRON ODT 4 MG TABLET TL STA (14:19)
[2023-08-17] MEDS: LIDOCAINE-EPINEPH-TETRACAINE 3 ML SYRINGE TOP STA (14:19)
[2023-08-17] MEDS: HYDROmorphone 1 MG/ML CARPUJECT IM STA (14:19)
[2023-08-17 15:59] VITALS: BP 122/74; O2SAT 98
== END 2023-08-17 15:49 | disposition home or self-care (01) ==
LOC: ED 13:30
DX: L02.412 Cutaneous abscess of left axilla (principal); E03.9 Hypothyroidism, unspecified; F17.200 Nicotine dependence, unspecified, uncomplicated; Z79.899 Other long term (current) drug therapy
CPT/HCPCS: 10061; 96372; 99283; A9270; J1170; Q0162

== ENCOUNTER 2023-08-28 10:06 | Outpatient (CLI) | payer MEDICAID ==
[2023-08-28 10:48] LABS: THYROID STIMULATING HORMONE 0.01 uIU/mL (0.34-5.60)
[2023-08-28 11:00] LABS: ESTIMATED AVERAGE GLUCOSE 131 mg/dL (70-100); HEMOGLOBIN A1c% 6.2 % (4.27-6.07)
== END 2023-08-28 10:07 | disposition home or self-care (01) ==
LOC: LAB 10:06
PROVIDERS: ATTEND Obstetrics & Gynecology
DX: E03.9 Hypothyroidism, unspecified (principal); E55.9 Vitamin D deficiency, unspecified; Z13.1 Encounter for screening for diabetes mellitus
CPT/HCPCS: 36415; 82306; 83036; 84436; 84439; 84443; 84480; 84481

== ENCOUNTER 2023-09-07 08:54 | Outpatient (CLI) | payer MEDICAID ==
--- NOTE | 2023-09-08 10:16 | Ultrasound Report ---
PROCEDURE: Pelvic w/Transvaginal INDICATIONS: OVARIAN CYST TECHNIQUE: Real-time scanning was performed of the pelvic organs, with image documentation. Additional endovagi nal scanning was necessary due to incomplete visualization of the adnexal and endometrial structures by transabdominal scanning. COMPARISON: CT abdomen pelvis 06/28/2023, ultrasound pelvis 06/26/2023. FINDINGS: Uterus: Removed. Ovaries: The right ovary measures 1.0 x 0.7 x 1.1 cm, with a calculated ovarian volume of 0.4 cc. T he left ovary measures 1.1 x 0.7 x 0.7 cm, with a calculated ovarian volume of 0.3 cc. The ovaries h ave a normal sonographic appearance. Less than 12 follicles can be seen in each ovary. Previous iden tified right ovarian cyst is decreased in size now measuring 0.5 cm compared to 2.1 cm. Other: No pathologic free abdominal or pelvic fluid. IMPRESSION: Decreased size of previous right adnexal cyst. Reviewed by: Ailyn Gunn MD on 09/08/2023 10:15 AM PDT Approved by: Ailyn Gunn MD on 09/08/2023 10:15 AM PDT Station ID: [id number]
== END 2023-09-07 08:55 | disposition home or self-care (01) ==
LOC: DI 08:54
PROVIDERS: ATTEND Obstetrics & Gynecology
DX: N83.291 Other ovarian cyst, right side (principal)

== ENCOUNTER 2023-09-11 08:00 | Outpatient (CLI) | payer MEDICAID | END 2023-09-11 23:59 | disposition home or self-care (01) | LOC: LAB.WCP 08:00 | PROVIDERS: ATTEND Physician Assistant Medical | DX: L02.91 Cutaneous abscess, unspecified (principal) | CPT/HCPCS: 87640 ==

== ENCOUNTER 2023-12-04 08:36 | Outpatient (CLI) | payer MEDICAID ==
[2023-12-04 09:06] LABS: ALBUMIN 4.4 g/dL (3.2-5.5); ALBUMIN/GLOBULIN RATIO 1.2 (1.0-2.2); ALKALINE PHOSPHATASE 74 IU/L (42-121); ALT ALANINE AMINOTRANSFERASE 15 IU/L (10-60); AST ASPARTATE AMINOTRANSFERASE 13 IU/L (10-42); BILIRUBIN,TOTAL 0.5 mg/dL (0.2-1.0); BUN - BLOOD UREA NITROGEN 17 mg/dL (6-20); CALCIUM 9.5 mg/dL (8.5-10.3); CARBON DIOXIDE - CO2 29 mmol/L (21-32); CHLORIDE 102 mmol/L (101-111); CHOL/HDL RATIO 4.4 (<4.4); CHOLESTEROL 206 mg/dL; CREATININE 0.9 mg/dL (0.6-1.3); GFR - MDRD 68 (>89); GLUCOSE 109 mg/dL (74-104); HDL CHOLESTEROL 47 mg/dL; LDL CHOLESTEROL,CALCULATED 132 mg/dL; LDL/HDL RATIO 2.8 (<4.4); POTASSIUM 4.2 mmol/L (3.5-4.5); SODIUM 136 mmol/L (135-145); TRIGLYCERIDES 135 mg/dL; VLDL CHOLESTEROL 27 mg/dL
[2023-12-04 09:21] LABS: THYROID STIMULATING HORMONE 0.01 uIU/mL (0.34-5.60)
[2023-12-04 10:01] LABS: ESTIMATED AVERAGE GLUCOSE 117 mg/dL (70-100); HEMOGLOBIN A1c% 5.7 % (4.27-6.07)
== END 2023-12-04 08:37 | disposition home or self-care (01) ==
LOC: LAB 08:36
PROVIDERS: ATTEND Physician Assistant Medical
DX: E78.5 Hyperlipidemia, unspecified (principal); R73.9 Hyperglycemia, unspecified; E03.9 Hypothyroidism, unspecified
CPT/HCPCS: 36415; 80053; 80061; 83036; 83721; 84439; 84443